=== PATIENT | female | born 1935 | race Caucasian/White ===

== ENCOUNTER → 2019-03-11 | Outpatient (CLI) | payer MEDICARE, SELFPAY ==
--- NOTE | 2019-03-11 16:12 | CT_ITS ---
STUDY: LOW DOSE CT LUNG CANCER SCREENING REASON FOR EXAM: Female, 83 years old. Long history of smoking. Cough RADIATION DOSAGE (If Supplied By Facility): CTDIvol = ( 2.01 ) mGy, DLP = ( 73.99 ) mGycm TECHNIQUE: No contrast was administered. Low dose technique was utilized (average mAS-38 and kVp 120). 1.25 mm axial source images with a slice interval of 1.25-mm were reconstructed in lung windows. 2.5 mm axial source images with a slice interval of 2.5-mm were reconstructed in lung windows. 5.0 mm axial source images with a slice interval of 5.0-mm were reconstructed in soft tissue windows. Nodule measured using lung windows on PACS and/or independent workstation with automated measurement of minimum and maximum diameter. Nodule measurement reported as average diameter rounded to the nearest whole number. Growth is defined as an increase ins size of greater than 1.5 mm. COMPARISON: None. NODULES: There is complete atelectasis of the right middle lobe. There is hyperinflation in both lungs suggesting COPD. 2 calcified nodules in the right upper lobe measuring respectively 4 mm and subcentimeter are consistent with granulomas. There is no demonstrated pleural abnormality. Normal heart and pericardium. Normal mediastinum. Normal hilar regions. Normal unenhanced pulmonary arteries. Normal aorta arch and descending thoracic aorta. Normal osseous structures. There is no demonstrated abnormality of the visualized upper abdomen. CT/Low Dose CT Lung Screening IMPRESSION: Lung-RADS category 4. Suspicious finding complete atelectasis of the right middle lobe. Recommendation: Endoscopic examination to exclude endobronchial neoplasm. IMPORTANT NOTES FOR USE: ACR Lung-RADS Version 1.0 Assessment Categories Release Date: January 19, 2014 Category: Coded 0-4 bases on nodule(s) with highest degree of suspicion. Negative screen is defined as categories 1 and 2; a positive screen is defined as categories 3 and 4. Category 3 and 4A nodules that are unchanged on interval CT should be coded as category 2, and individuals returned to screening in 12 months. Category 4X: Category 3 or 4 nodules with additional imaging findings that increase the suspicion of lung cancer, such as spiculation, GGN that doubles in size in 1 year, enlarged lymph notes, etc. Category Modifiers: S (significant finding unrelated to lung cancer) and C (prior history of treated lung cancer) may be added to the 0-4 Lung-RADS Electronically Signed: Ja Cross, at 5:44 EDT Tel , Service support ,
== END | disposition home or self-care (01) ==
LOC: CT 16:10
PROVIDERS: Family Provider Internal Medicine; PCP Internal Medicine; Referring Provider Nurse Practitioner; Visit Provider Nurse Practitioner
DX: R05 Cough (principal); F17.210 Nicotine dependence, cigarettes, uncomplicated; Z12.2 Encounter for screening for malignant neoplasm of respiratory organs
CPT/HCPCS: G0297

== ENCOUNTER → 2019-06-16 16:52 | Outpatient (CLI) | payer MEDICARE, SELFPAY ==
[2019-06-16 17:35] LABS: Absolute Lymphocyte Count 1.69 X10^3/uL (0.83-4.51); Absolute Neutrophil Count 5.2 X10^3/uL (2.0-7.7); Basophil# 0.07 X10^3/uL; Basophil% 0.9 % (0-1); Eosinophil# 0.19 X10^3/uL; Eosinophils% 2.4 % (0-5); Hematocrit 45.7 % (37-47); Hemoglobin 15.1 g/dL (12.0-15.0); Lymphocyte # 1.69 X10^3/ul (4.0); Lymphocyte % 21.7 % (19-41); Mean Corpuscular Hgb 29.3 pg (27.0-32.0); Mean Corpuscular Volume 88.7 fL (81-99); Mean Platelet Vol. 10.6 fl (6.2-12.0); Monocyte# 0.64 X10^3/uL; Monocyte% 8.2 % (0-10); NRBC Flagged by Analyzer 0 % (0-5); Neutrophil # 5.16 X10^3/uL (2.7-7.7); Neutrophil % 66.3 % (47-70); Platelet Count 240 K/mm3 (150-450); RBC Distribution Width CV 13.1 % (11.6-14.6); RBC Distribution Width SD 42.5 fl (35.1-43.9); Red Blood Count 5.15 M/mm3 (4.2-5.4); White Blood Count 7.8 K/mm3 (4.4-11.0)
[2019-06-16 18:16] LABS: ALB/GLOB Ratio 1.1 RATIO (0.9-2.4); AST(SGOT) 27 U/L (15-37); Alanine Aminotransfer ALT/SGPT 28 U/L (13-56); Albumin, Serum 4.2 g/dL (3.2-5.0); Alkaline Phosphatase 110 U/L (45-117); Anion Gap 6 (5-15); BUN 11 mg/dL (7-18); BUN/Creat Ratio 12.6 RATIO (10-20); Calcium,Total 9.1 mg/dL (8.5-10.1); Chloride 101 mmol/L (98-107); Creatinine, Serum 0.87 mg/dL (0.55-1.02); EST Glomerular Filtration Rate 66 mL/min (>60); Est Glom Filt Rate - Afr Amer 80 mL/min (>60); Globulin 3.8 g/dL (2.2-4.2); Glucose 101 mg/dL (74-106); Sodium Level 135 mmol/L (136-145)
== END ==
PROVIDERS: Family Provider Internal Medicine; PCP Internal Medicine; Referring Provider Nurse Practitioner; Visit Provider Nurse Practitioner
DX: J44.9 Chronic obstructive pulmonary disease, unspecified (principal); E55.9 Vitamin D deficiency, unspecified
CPT/HCPCS: 36415; 80053; 82306; 85025

== ENCOUNTER → 2019-09-02 15:14 | Outpatient (CLI) | payer MEDICARE, SELFPAY ==
--- NOTE | 2019-09-02 15:16 | BI_ITS ---
MAMMOGRAPHY - BILATERAL SCREENING REASON FOR EXAM: Female, 83 years old. Routine annual screening examination. PERTINENT HISTORY: Non-contributory. TECHNIQUE: Digital bilateral breast gianna (3D mammographic acquisition) in the CC and MLO projections. 2-D mediolateral oblique (MLO) and craniocaudad (CC) views of both breasts were obtained. CAD: Full Field Digital Mammography with Computer Added Detection was performed. COMPARISON: Comparison is made with prior study dated November 25, 2010. FINDINGS: Breast Composition: The breasts are heterogeneously dense, which may obscure small masses. There are no dominant masses or suspicious calcifications. Stable bilateral calcifications. Stable benign-appearing bilateral axillary lymph nodes. No other significant abnormalities are identified. There has been no significant change since the prior study. BI/SCREEN MAMM (CAD) W/GIANNA BILAT IMPRESSION: Stable bilateral screening mammogram. Yearly follow-up mammogram recommended. (A) ASSESSMENT CATEGORY: BIRADS Category 2: Benign. A letter regarding these results will be sent to the patient by the facility within 30 days. Approximately 10% of breast cancers are not detected by mammography. A normal mammogram should not delay biopsy of a clinically suspicious abnormality. [id number] Electronically Signed: Carlos Pelletier, at 15:59 EST , Service support ,
--- NOTE | 2019-09-02 15:51 | BD_ITS ---
STUDY: DUAL ENERGY X-RAY ABSORPTIOMETRY / DXA REASON FOR EXAM: Female, 83 years old. The patient is postmenopausal. Loss of height. TECHNIQUE: Bone Mineral Density (BMD) measurements of lumbar spine and bilateral hips were obtained. COMPARISON: None. FINDINGS: Lumbar Spine (L1-L4): g/cm2 (0.799) / T-score (-3.2) / Z-score (-1.3) Findings are suggestive of osteoporosis with a high fracture risk. Left Femur Total: g/cm2 (0.743) / T-score (-2.1) / Z-score (0.1) Left Femoral Neck: g/cm2 (0.04) / T-score (-1.7) / Z-score (0.6) Right Femur Total: g/cm2 (0.721) / T-score (-2.3) / Z-score (-0.1) Right Femoral Neck: g/cm2 (0.818) / T-score (-1.6) / Z-score (0.7) BD/Dexa Bone Density Study IMPRESSION: The patient is considered osteoporotic as outlined below according to World Turner Organization (WHO) criteria with a high fracture risk. Reference Information: The T-score is the number of standard deviations above or below the standard which is normal for young adults at their peak bone mineral density. The World Health Organization (WHO) interprets the T-scores as follows: Above -1 Normal bone density Between -1 and -2.5 Osteopenia Equal to / or below -2.5 Osteoporosis As a practical clinical guideline, osteopenia may be graded as follows: Mild -1 through -1.5 Moderate -1.6 through -2.0 Severe -2.1 through -2.4 The Z-score is the number of standard deviations above or below age-matched controls. A Z-score of less than -1.5 would be considered abnormal. References: 1. NIH Osteoporosis and Related Bone Diseases http://www.osteo.org 2. International Society for Clinical Densitometry http://www.iscd.org 3. National Osteoporosis Foundation http://www.nof.org Electronically Signed: Carlos Pelletier, at 14:31 EST , Service support ,
== END ==
PROVIDERS: Family Provider Nurse Practitioner; PCP Nurse Practitioner; Referring Provider Nurse Practitioner; Visit Provider Nurse Practitioner
DX: Z12.31 Encounter for screening mammogram for malignant neoplasm of breast (principal); Z78.0 Asymptomatic menopausal state; M81.0 Age-related osteoporosis without current pathological fracture
CPT/HCPCS: 77063; 77067; 77080

== ENCOUNTER → 2019-11-17 16:37 | Outpatient (CLI) | payer MEDICARE, SELFPAY ==
--- NOTE | 2019-11-17 16:40 | CT_ITS ---
STUDY: LOW DOSE CT LUNG CANCER SCREENING REASON FOR EXAM: Female, 83 years old. 40 pack smoking history. Right middle lobe nodule seen on prior CT of 2019. RADIATION DOSAGE (If Supplied By Facility): CTDIvol = ( 3.02 ) mGy, DLP = ( 106.84 ) mGycm TECHNIQUE: No contrast was administered. Low dose technique was utilized (average mAS-38 and kVp 120). 1.25 mm axial source images with a slice interval of 1.25-mm were reconstructed in lung windows. 2.5 mm axial source images with a slice interval of 2.5-mm were reconstructed in lung windows. 5.0 mm axial source images with a slice interval of 5.0-mm were reconstructed in soft tissue windows. Nodule measured using lung windows on PACS and/or independent workstation with automated measurement of minimum and maximum diameter. Nodule measurement reported as average diameter rounded to the nearest whole number. Growth is defined as an increase ins size of greater than 1.5 mm. COMPARISON: CT of the chest, March 11, 2019. NODULES: Nodule #: 1 Density: Solid Lung location: Left upper lobe: 1.6 cm from pleura Location in series: Series Number: 2 Image: 85 Size - D1 x D2 mm: 2 x 2 mm: 2 mm average diameter Margin: Smooth Shape: Round Calcification: Yes Fat: No Temporal comparison: Stable Nodule #: 2 Density: Solid Lung location: Right lower lobe: 1.7 cm from pleura Location in series: Series Number: 2 Image: 102 Size - D1 x D2 mm: 3 x 3 mm: 3 mm average diameter Margin: Smooth Shape: Rounded Calcification: Yes Fat: No Temporal comparison: Stable Nodule #: 3 Density: Solid Lung location: Right upper lobe: Pleural-based Location in series: Series Number: 2 Image: 103 Size - D1 x D2 mm: 6 x 6 mm: 6 mm average diameter Margin: Smooth Shape: Rounded Calcification: Yes Fat: No Temporal comparison: Stable Nodule #: 4 Density: Solid Lung location: Right upper lobe: 3.0 cm from pleura Location in series: Series Number: 2 Image: 114 Size - D1 x D2 mm: 3 x 2 mm: 3 mm average diameter Margin: Smooth Shape: Oval Calcification: Yes Fat: No Temporal comparison: Stable Total lung nodules (excluding granulomas): 0 Emphysema: Yes Endobronchial lesion: No. There is resolution of the right middle lobe collapse seen on the previous study. Aorta: Stable atherosclerotic changes. Coronary arteries: Stable atherosclerotic changes. Heart: Normal in size Pulmonary artery: Normal in size Mediastinal nodes: Stable mediastinal lymphadenopathy. Calcified lymph nodes are seen in the right hilum. Other chest and abdominal findings: There are degenerative changes of the thoracic spine. Calcified granulomata are seen in the spleen. Question gallstone. CT/Low Dose CT Lung Screening IMPRESSION: Resolution of the right middle lobe atelectasis seen on the previous study. There is no other major interval change. Lung-RADS category 1 - Continue annual screening with LDCT in 12 months. IMPORTANT NOTES FOR USE: ACR Lung-RADS Version 1.0 Assessment Categories Release Date: January 19, 2014 Category: Coded 0-4 bases on nodule(s) with highest degree of suspicion. Negative screen is defined as categories 1 and 2; a positive screen is defined as categories 3 and 4. Category 3 and 4A nodules that are unchanged on interval CT should be coded as category 2, and individuals returned to screening in 12 months. Category 4X: Category 3 or 4 nodules with additional imaging findings that increase the suspicion of lung cancer, such as spiculation, GGN that doubles in size in 1 year, enlarged lymph notes, etc. Category Modifiers: S (significant finding unrelated to lung cancer) and C (prior history of treated lung cancer) may be added to the 0-4 Lung-RADS Electronically Signed: Art Yap DO at 17:26 EST Tel [phone], Service support ,
== END ==
PROVIDERS: PCP Nurse Practitioner; Referring Provider Nurse Practitioner; Visit Provider Nurse Practitioner
DX: R93.89 Abnormal findings on diagnostic imaging of other specified body structures (principal); Z87.891 Personal history of nicotine dependence
CPT/HCPCS: G0297

== ENCOUNTER 2020-08-13 20:57 | Observation (INO) | payer MEDICARE, SELFPAY ==
[2020-08-13 20:58] VITALS: BP 160/76; PULSE 77; RESP 13; TEMP 36.9; O2SAT 97; BMI 25.2
[2020-08-13 21:05] VITALS: BP 160/76; PULSE 76; RESP 17; O2SAT 96
--- NOTE | 2020-08-13 21:20 | EKG12_ITS ---
Test Reason : SYNCOPE Blood Pressure : / mmHG Vent. Rate : 079 BPM Atrial Rate : 079 BPM P-R Int : 202 ms QRS Dur : 078 ms QT Int : 398 ms P-R-T Axes : 066 032 057 degrees QTc Int : 456 ms Normal sinus rhythm Normal ECG Confirmed by CARRINGTON ASHBY, OLGA ([id number]), health editor JOSR KIRKLAND ([id number]) on 08/16/2020 9:51:14 AM Referred By: BB Confirmed By:OLGA SHULTZ MD
--- NOTE | 2020-08-13 21:20 | ED.VIS.GEN ---
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 Her daughter apparently was with her and said that she was clammy and pale and blacked out. This is according to the patient and what the daughter told her. She denies any other prodromal symptoms. She did not feel nauseated prior to blacking out, dyspnea, palpitations, chest pain, headache. Right now she feels a little fatigued but otherwise feels a lot better. EMS blood sugar was around 180. Vital signs were stable. No bradycardia. Patient has chronic dyspnea with exertion associated with her COPD that is no different lately, she has been feeling well recently without any illness. She does not use home oxygen for any reason. She has had no recent hospitalization, falls, surgeries, travel. - Past Medical History (1) Diabetes Status: Chronic (2) COPD (chronic obstructive pulmonary disease) Status: Chronic Past Medical History - Allergies and Home Meds Allergies/Adverse Reactions: Allergies No Known Allergies Allergy (Verified 08/13/20 20:57) Primary Care Physician: Yuko Cleveland DIPLOMA MEDICAL ASSISTANT, DIPLOMA MEDICAL ASSISTANT-C [Primary Care Provider] - Lives: With Family Smoking Status: Former smoker Review of Systems General: Reports: Malaise. Denies: Chills, Fever, Sweats Eyes: Denies: Visual changes - bilaterally, Diplopia ENT: Denies: Rhinorrhea, Sore throat Cardiovascular: Denies: Chest pain, Palpitations Respiratory: Reports: Cough - Chronic unchanged, Dyspnea on exertion. Denies: Dyspnea, Sputum Gastrointestinal: Reports: Nausea - Resolved, Vomiting. Denies: Abdominal pain, Diarrhea, Melena, Hematochezia Genitourinary: Denies: Dysuria, Hematuria, Frequency Musculoskeletal: Denies: Back pain, Extremity Pain Skin: Denies: Rash, Wounds Neurological: Reports: - - Syncope. Denies: Headache, Weakness, Numbness Physical Exam Vital Signs/Narrative: Vital Signs Temp Pulse Resp BP Pulse Ox 11/20/20 21:05 76 17 160/76 H 96 08/13/20 20:58 98.4 F 77 13 160/76 H 97 Inital Vital Signs reviewed: Yes General: Well nourished, Well developed, No Acute Distress Head: Normocephalic, Atraumatic Eyes: Perrl, EOMI ENT: Moist mucous membranes, No rhinorrhea Neck: Supple, Nontender Cardiovascular: Regular rate, Regular rhythm, No murmurs Respiratory: No distress, CTA bilaterally, Chest nontender Abdomen: Soft, Nontender, Nondistended, Normal bowel sounds Back: Nontender, Normal Inspection Extremities: Nontender, Edema - Mild both feet and ankles only, symmetric. Negative for: Calf Tenderness Skin: Normal color, No rash Neurological: Alert, Oriented x3, Cranial nerves II-XII grossly intact, Normal Strength, Normal Sensation, - - No aphasia or dysarthria. [id number], [id number] bilaterally negative. Psychological: Normal affect, Normal Mood Diagnostic/Tx/Re-eval Chest X-Ray - ED: 1 View, Read by ED Physician, No Acute Disease - Rotated and relatively limited, Chronic Changes, No Infiltrates Laboratory Results 08/13/20 08/13/20 08/13/20 21:05 21:05 22:12 WBC 11.5 H RBC 5.00 Hgb 15.0 Hct 45.6 MCV 91.2 MCH 30.0 MCHC 32.9 RDW Std Deviation 45.1 H RDW Coeff of Collins 13.6 Plt Count 212 MPV 10.7 Immature Gran % (Auto) 0.400 Neut % (Auto) 85.3 H Lymph % (Auto) 7.1 L [place] % (Auto) 5.3 Eos % (Auto) 1.5 Baso % (Auto) 0.4 Absolute Neuts (auto) 9.8 H Absolute Lymphs (auto) 0.81 L Nucleated RBC % 0 Sodium 138 Potassium 3.9 Chloride 106 Carbon Dioxide 28.0 Anion Gap 4 L BUN 13 Creatinine 1.01 Estim Creat Clear Calc 41.83 Est GFR (MDRD) Af Amer 67 Est GFR (MDRD) Non-Af 55 L BUN/Creatinine Ratio 12.9 Glucose 179 H Calcium 8.7 Troponin I < 0.015 Urine Color Yellow Urine Clarity Sl. Cloudy Urine pH 8.0 Ur Specific [place] 1.015 Urine Protein 15 H Urine Glucose (UA) 50 H Urine Ketones Negative Urine Occult Blood Negative Urine Nitrite Negative Urine Bilirubin Negative Urine Urobilinogen Normal Ur Leukocyte Esterase 25 H Urine RBC 0 SEEN Urine WBC 0-5 SEEN Ur Squamous Epith Cells 0-5 SEEN Urine Bacteria RARE Urine Mucus 0 SEEN - Rhythm Strip Rhythm Strip: Sinus Rhythm Rate: 79 Ectopy: PAC(s) - EKG Initial EKG Interpretation: Sinus Rhythm, No Acute Injury Pattern - normal EKG Follow-up EKG Interpretation: Sinus Rhythm, No Acute Injury Pattern, - - PACs - Medical Decision Making Work-up is unremarkable. Patient had no dyspnea to suggest a PE as etiology of her syncope. Since there is no obvious cause, and she is elderly, plan is admission to observation telemetry. Of note, the patient has no stroke symptoms or findings, nor history to suggest a stroke causing this or a fall/injury to the head, so I do not think she needs a CT head at this time. ED Disposition - Plan for ED Patient: Disposition: Acute Care Hospital [facility] Diagnosis: Syncope Referrals: Yuko Cleveland DIPLOMA MEDICAL ASSISTANT, DIPLOMA MEDICAL ASSISTANT-C [Primary Care Provider] -
[2020-08-13 21:54] LABS: Absolute Lymphocyte Count 0.81 X10^3/uL (0.83-4.51); Absolute Neutrophil Count 9.8 X10^3/uL (2.0-7.7); Basophil# 0.05 X10^3/uL; Basophil% 0.4 % (0-1); Eosinophil# 0.17 X10^3/uL; Eosinophils% 1.5 % (0-5); Hematocrit 45.6 % (37-47); Lymphocyte # 0.81 X10^3/ul (4.0); Lymphocyte % 7.1 % (19-41); Mean Corp Hgb Conc 32.9 g/dL (32-36); Mean Corpuscular Volume 91.2 fL (81-99); Mean Platelet Vol. 10.7 fl (6.2-12.0); Monocyte# 0.61 X10^3/uL; Monocyte% 5.3 % (0-10); NRBC Flagged by Analyzer 0 % (0-5); Neutrophil # 9.79 X10^3/uL (2.7-7.7); Neutrophil % 85.3 % (47-70); Platelet Count 212 K/mm3 (150-450); RBC Distribution Width CV 13.6 % (11.6-14.6); RBC Distribution Width SD 45.1 fl (35.1-43.9); White Blood Count 11.5 K/mm3 (4.4-11.0)
[2020-08-13 21:58] LABS: Anion Gap 4 (5-15); BUN 13 mg/dL (7-18); BUN/Creat Ratio 12.9 RATIO (10-20); Calcium,Total 8.7 mg/dL (8.5-10.1); Chloride 106 mmol/L (98-107); Creatinine, Serum 1.01 mg/dL (0.55-1.02); EST Glomerular Filtration Rate 55 mL/min (>60); Est Glom Filt Rate - Afr Amer 67 mL/min (>60); Estimated Creatinine Clearance 41.83 ml/min; Glucose 179 mg/dL (74-106); Potassium 3.9 mmol/L (3.5-5.1); Sodium Level 138 mmol/L (136-145)
[2020-08-13 22:21] LABS: Mucous, Urine 0 SEEN /hpf (<or=2+); Red Blood Cells-Urine 0 SEEN /hpf (0-5)
[2020-08-13 22:34] LABS: Color, Urine Yellow (Yellow); Glucose, Dipstick 50 mg/dl (Normal); Ketone-Dipstick Negative (Negative); Leukocyte Esterase-Dipstick 25 /ul (Negative); Nitrite-Dipstick Negative (Negative); Occult Blood-Urine Negative /ul (Negative); Protein-Dipstick 15 mg/dl (Negative); Specific Gravity, Urine 1.015 (1.002-1.030); Urine Bilirubin Dipstick Negative (Negative); Urine Clarity Sl. Cloudy (Clear); Urine Urobilinogen Normal (Normal)
[2020-08-13 22:48] LABS: Bacteria RARE /hpf (None Seen); Squamous Epithelial Cells - UA 0-5 SEEN /hpf (5-10); White Blood Cells 0-5 SEEN /hpf (0-5)
[2020-08-13 23:00] VITALS: BP 141/84; PULSE 88; RESP 17; O2SAT 98
--- NOTE | 2020-08-13 23:48 | RAD_ITS ---
STUDY: X-RAY CHEST REASON FOR EXAM: Female, 84 years old. syncope and cough TECHNIQUE: Single AP portable view of the chest. COMPARISON: None. FINDINGS: There is a calcified granuloma in the right lung upper lobe measures 7 mm. There is small right pleural effusion. Normal size heart. Normal mediastinum and jovi. Normal visualized pulmonary arteries. Normal visualized aortic arch and descending thoracic aorta. Normal visualized thoracic spine. There is degenerative osteoarthritis of the bilateral shoulders. There is no demonstrated abnormality of the visualized soft tissue structures of the upper abdomen. RAD/Chest 1 View (Portable) IMPRESSION: Small right pleural effusion. Electronically Signed: Ja Cross, at 1:03 EST Tel , Service support ,
[2020-08-14] VITALS (16 sets, daily range): BP systolic 110–152; BP diastolic 52–73; PULSE 67–100; RESP 15–20; TEMP 36.8–37.7; O2SAT 95–99; BMI 24.0
--- NOTE | 2020-08-14 00:18 | EKG12_ITS ---
Test Reason : REPEAT EKG Blood Pressure : / mmHG Vent. Rate : 088 BPM Atrial Rate : 088 BPM P-R Int : 162 ms QRS Dur : 068 ms QT Int : 382 ms P-R-T Axes : 033 029 056 degrees QTc Int : 462 ms Sinus rhythm with Premature supraventricular complexes Otherwise normal ECG Confirmed by CARRINGTON ASHBY, OLGA ([id number]), dictionary editor JOSR KIRKLAND ([id number]) on 08/16/2020 9:51:00 AM Referred By: BB Confirmed By:OLGA SHULTZ MD
--- NOTE | 2020-08-14 01:01 | PCM.HP.STD ---
Problem List (1) Syncope Status: Acute Qualifiers: Syncope type: unspecified Qualified Code(s): R55 - Syncope and collapse (2) Former tobacco use Status: Chronic (3) COPD (chronic obstructive pulmonary disease) Status: Chronic Qualifiers: COPD type: unspecified COPD Qualified Code(s): J44.9 - Chronic obstructive pulmonary disease, unspecified (4) Diabetes Status: Chronic Qualifiers: Diabetes mellitus type: type 2 Diabetes mellitus intermediate accountant insulin use: without intermediate accountant use Diabetes mellitus complication status: with other specified complication Qualified Code(s): E11.69 - Type 2 diabetes mellitus with other specified complication History of Present Illness Date of Admission: 08/14/20 Chief Complaint: Syncopal event The patient is an 84 y/o F w/ PMHx: Chronic COPD with chronic exertional dyspnea, Diabetes mellitus type II, Vitamin D deficiency, Former Tobacco use who presents to the [facility] ED on 08/14/20 with history of syncopal event prior to ED presentation with loss of consciousness lasting several minutes and upon awakening had episode of nausea and emesis following her evening meal while seated on her couch noting to felt faint prior and reportedly clammy and pale per her daughter who witnessed the event. Patient upon ED presentation noted feeling fatigued otherwise no acute complaints. She denies any recent fever, chills, nausea, emesis side from recent event, diarrhea, abdominal cramping, body aches, headaches, cough or dyspnea. He denies any recent ill contacts. Work-up in the ED included T 98.4, heart rate 77, BP 160/76, respiratory rate 13, 97% on room air, CBC with WC 11.5, hemoglobin 15, platelet 212 with left shift and concurrent lymphopenia, BMP with glucose 179 though otherwise not marked appearing, troponin less than 0.015, urinalysis not marked appearing, chest x-ray with no acute cardiopulmonary findings with chronic changes, EKG with sinus rhythm with PACs. The ED patient ministered normal saline. Past Medical History Past Medical History (Chronic Problems): Chronic Problems Diabetes (Chronic) COPD (chronic obstructive pulmonary disease) (Chronic) Former tobacco use (Chronic) Allergies No Known Allergies Allergy (Verified 08/13/20 20:57) Home Medications: Ambulatory Orders Medication Instructions Recorded Cholecalciferol (VIT D3) [Vitamin 1,000 unit PO DAILY 08/13/20 D] Surgical History: - - Cataract surgery bilaterally. Psychiatric History: No pertinent psych hx TRAUMA PROGRAM MANAGER History: No pertinent TRAUMA PROGRAM MANAGER history Lives: With Family - Patient lives with her daughter. Smoking Status: Former smoker - Patient quit cigarette tobacco usage approximately 5 to 7 years prior to current presentation with prior to this approximately 1 pack/week starting when she was a teenager. Tobacco Use: Non-smoker Alcohol: None Drugs: None - *Family History Maternal History Items: - - Patient denies any market maternal or paternal family history including heart disease, diabetes, cancer. Paternal History Items: - - Patient denies any market maternal or paternal family history including heart disease, diabetes, cancer. Sibling History Items: - - Patient notes a brother with history of stroke and a sister with a history of uterine cancer. Review of Systems Constitutional: Reports: Malaise, Weakness, Fatigue. Denies: Chills, Fever, Weight Change HEENT: Reports: -. Denies: Head Aches, Sinus Congestion, Sinus Drainage Cardiovascular: Reports: Light Headedness, Syncope. Denies: Chest Pain, Chest Pressure, Chest Tightness, Palpitations Respiratory: Denies: Cough, Shortness of breath at rest, Sputum production Gastrointestinal: Denies: Abdominal Pain, Nausea, Vomiting Genitourinary: Denies: Dysuria Musculoskeletal: Reports: Joint Pain. Denies: Joint Tenderness Skin: Denies: Rash, Wounds Neurological: Denies: Numbness, Tingling, Focal weakness Psychiatric: Denies: Anxiety, Depression, Homicidal Ideations, Suicidal Ideations Hematologic/ Lymphatic: Reports: Easy Bruising, Easy Bleeding VTE Information - Inpt Only VTE Present on Admission: No VTE Mechan Device Prophylaxis: SCD's VTE Pharm Prophylaxis ordered?: Yes Patient Problems: Active and Suspected Problems Syncope (Acute) Subjective: Patient seated upright in the ED bed, no acute distress, notes feeling back to baseline. Objective: Physical Examination: General: awake, alert, oriented x 3 and cooperative, seated upright in the ED bed in no apparent distress, fatigued appearance. Skin: normal color, turgor, no icterus, cyanosis. HEENT: AT/NC, EOMI, PERRLA, MMM, no carotid bruits or JVD noted. Lungs: CTA bilaterally, moderate effort, moderate decrease BL bases, no rales, ronchi or wheezing. Heart: Regular rate and rhythm; no gallop, rub audible. Abdomen: soft, NTTP, ND, normal BS, no HSM. Extremities: no cyanosis, clubbing, or edema. Neurological: patient awake, alert, oriented as noted; cognitive function appears baseline intact; pupils equally reactive to light and accomodation; cranial nerves II-XII grossly normal, moving all 4 extremities, no focal deficits, strength mildly globally decreased. Psychiatric: affect appears fatigued otherwise normal, no acute evidence of depressive or anxiety feelings. - Physical Exam Vitals/I&O's: Vital Signs Temp Pulse Resp BP Pulse Ox 98.4 F 88 17 141/84 H 98 08/13/20 20:58 08/13/20 23:00 08/13/20 23:00 08/13/20 23:00 08/13/20 23:00 Oxygen Delivery Method Room Air Weight: 165 lb 12.602 oz Body Mass Index (BMI) 25.2 Intake and Output for Last 24 Hours 08/12/20 08/13/20 08/14/20 23:59 23:59 23:59 Intake Total 500 / 500 Balance 500 / 500 Laboratory Results 08/13/20 21:05: WBC 11.5 H, RBC 5.00, Hgb 15.0, Hct 45.6, MCV 91.2, MCH 30.0, MCHC 32.9, RDW Std Deviation 45.1 H, RDW Coeff of Collins 13.6, Plt Count 212, MPV 10.7, Immature Gran % (Auto) 0.400, Neut % (Auto) 85.3 H, Lymph % (Auto) 7.1 L, [place] % (Auto) 5.3, Eos % (Auto) 1.5, Baso % (Auto) 0.4, Absolute Neuts (auto) 9.8 H, Absolute Lymphs (auto) 0.81 L, Nucleated RBC % 0 08/13/20 21:05: Sodium 138, Potassium 3.9, Chloride 106, Carbon Dioxide 28.0, Anion Gap 4 L, BUN 13, Creatinine 1.01, Estim Creat Clear Calc 41.83, Est GFR (MDRD) Af Amer 67, Est GFR (MDRD) Non-Af 55 L, BUN/Creatinine Ratio 12.9, Glucose 179 H, Calcium 8.7, Troponin I < 0.015 11/20/20 22:12: Urine Color Yellow, Urine Clarity Sl. Cloudy, Urine pH 8.0, Ur Specific [place] 1.015, Urine Protein 15 H, Urine Glucose (UA) 50 H, Urine Ketones Negative, Urine Occult Blood Negative, Urine Nitrite Negative, Urine Bilirubin Negative, Urine Urobilinogen Normal, Ur Leukocyte Esterase 25 H, Urine RBC 0 SEEN, Urine WBC 0-5 SEEN, Ur Squamous Epith Cells 0-5 SEEN, Urine Bacteria RARE, Urine Mucus 0 SEEN Assessment/Plan All Active Problems Syncope (Acute) The patient is an 84 y/o F w/ PMHx: Chronic COPD with chronic exertional dyspnea, Diabetes mellitus type II, Vitamin D deficiency, Former Tobacco use who presents to the [facility] ED on 08/14/20 with history of syncopal event prior to ED presentation with loss of consciousness lasting several minutes and upon awakening had episode of nausea and emesis following her evening meal while seated on her couch noting to felt faint prior and reportedly clammy and pale. 1. Syncopal Event: Unclear etiololgy, EKG in ED w/ sinus rhythm without evidence of acute ischemia, CXR w/ no acute cardiopulmonary findings, initial trop normal. Will admit to PCU, place on a monitored bed to assure no acute myocardial infarction with serial cardiac enzymes and EKGs. Will maintain on fall precautions, obtain admission orthostatic and AM orthostatic VS and increase hydration if appropriate. Will obtain ECHO. May consider carotid ultrasound if felt appropriate. PT/OT consultation to ascertain stability and discharge needs. 2. Leukocytosis and lymphopenia, mild: Patient with leukocytosis as well as mild lymphopenia, possibly stress response, will hydrate and plan repeat CBC with differential in a.m. 3. Diabetes mellitus type II: Previous on metformin, not on current list, HgbA1c pending, ADA diet, accu checks w/ ISS. 4. Chronic COPD with chronic exertional dyspnea: Will maintain on oxygen with wean as tolerated to room air, continue ATC duonebs, PRN albuterol, HOB, IS parameters. 5. Former tobacco use: Encourage continued tobacco cessation. 6. DVT prophylaxis: SCDs, Lovenox. 7. CODE status: Patient does not have healthcare power of senior attorney nor living will set up but currently lives with her daughter. Discussed CODE status at length including difference between FULL code, DNR-CCA and DNR-CC status. Following discussions about the differences in these status, requested Full Code status. Advanced Care Planning Face to Face Time: 16 minutes. OBSV E&M: 48892 Initial observation care L3 Procedures: 13793 Advncd Care Plan 30 Min
--- NOTE | 2020-08-14 02:44 | ECHOD_ITS ---
Reason For Study: Arrhythmia Procedure This was a 2D Doppler, Color Flow transthoracic echocardiogram. Exam performed portable in patient room. Left Ventricle Normal LV size. Mild concentric left ventricular hypertrophy. Left ventricular systolic function is normal. The estimated ejection fraction is 65 %. Stage 1 diastolic dysfunction. No regional wall motion abnormalities noted. Right Ventricle Normal RV size. Normal systolic function. Atria Normal left atrium. Normal right atrium. Mitral Valve There is moderate mitral annular calcification. Tricuspid Valve Normal tricuspid valve. Mild (1+) tricuspid valve insufficiency. Pulmonary artery systolic pressure is 30 mmHg. Aortic Valve Trisinus/trileaflet aortic valve. Mild focal aortic valve calcification. Pulmonic Valve Normal pulmonic valve. Great Vessels Normal aortic root. The pulmonary artery is normal size. Normal inferior vena cava. Pericardium/Pleural No pericardial effusion. MMode/2D Measurements & Calculations LVIDd: 3.7 cm IVSd: 1.2 cm Ao root diam: 3.8 cm LVIDs: 2.5 cm LVPWd: 1.2 cm LA dimension: 3.0 cm FS: 31.3 % LAV(MOD-bp): 22.2 ml LA A4 area: 12.0 cm2 RA A4 area: 12.3 cm2 LAV(MOD-bp) Indexed: 12.0 ml/m2 LAV(MOD-sp2): 22.0 ml LAV(MOD-sp4): 23.6 ml Time Measurements MV dec time: 0.31 sec Doppler Measurements & Calculations MV E max luis e: 73.9 cm/sec Lat Peak E' Luis E: 9.0 cm/sec Med Peak E' Luis E: 8.8 cm/sec MV A max luis e: 110.5 cm/sec E/E' lat: 8.2 E/E' med: 8.4 MV E/A: 0.67 MV V2 max: 128.1 cm/sec MV P1/2t max luis e: 79.9 cm/sec Ao V2 max: 175.3 cm/sec MV max P.6 mmHg MV P1/2t: 79.3 msec Ao max P.3 mmHg MV V2 mean: 68.7 cm/sec MV dec slope: 295.4 cm/sec2 MV mean P.2 mmHg MVA(P1/2t): 2.8 cm2 MV V2 VTI: 28.4 cm LV V1 max: 104.6 cm/sec PA V2 max: 86.7 cm/sec TR max luis e: 262.4 cm/sec LV V1 max P.4 mmHg TR max P.5 mmHg Interpretation Summary Normal LV size. Mild concentric left ventricular hypertrophy. Left ventricular systolic function is normal. The estimated ejection fraction is 65 %. Stage 1 diastolic dysfunction. Pulmonary artery systolic pressure is 30 mmHg. Ordering Physician: Lima Garibay Referring Physician: Yuko Cleveland Performed By: Bryson Beth RCS
[2020-08-14] MEDS: 0.9% Normal Saline 1,000 ML 100 ML IV ×3 (02:58→22:48)
--- NOTE | 2020-08-14 03:35 | NURSING ---
lab notitifed of new order for Cardiac troponin series
[2020-08-14 04:49] LABS: Magnesium 2.1 mg/dL (1.6-2.6)
[2020-08-14 07:07] LABS: Absolute Lymphocyte Count 0.83 X10^3/uL (0.83-4.51); Absolute Neutrophil Count 8.5 X10^3/uL (2.0-7.7); Basophil# 0.05 X10^3/uL; Basophil% 0.5 % (0-1); Eosinophil# 0.03 X10^3/uL; Eosinophils% 0.3 % (0-5); Hematocrit 44.3 % (37-47); Hemoglobin 14.4 g/dL (12.0-15.0); Lymphocyte # 0.83 X10^3/ul (4.0); Lymphocyte % 8.1 % (19-41); Mean Corp Hgb Conc 32.5 g/dL (32-36); Mean Corpuscular Hgb 29.6 pg (27.0-32.0); Mean Platelet Vol. 10.8 fl (6.2-12.0); Monocyte# 0.74 X10^3/uL; Monocyte% 7.2 % (0-10); NRBC Flagged by Analyzer 0 % (0-5); Neutrophil # 8.54 X10^3/uL (2.7-7.7); Neutrophil % 83.7 % (47-70); Platelet Count 209 K/mm3 (150-450); RBC Distribution Width CV 13.6 % (11.6-14.6); RBC Distribution Width SD 44.6 fl (35.1-43.9); Red Blood Count 4.87 M/mm3 (4.2-5.4); White Blood Count 10.2 K/mm3 (4.4-11.0)
[2020-08-14] MEDS: Insulin Lispro 100 UNIT/ML INSULN.PEN SC ×3 (07:11→20:45)
[2020-08-14 07:15] LABS: Bedside Glucose 151 mg/dL (70-110)
[2020-08-14 07:27] LABS: Hemoglobin A1c 6.2 % (3.8-5.6)
[2020-08-14] MEDS: Ipratropium/Albuterol Sulfate 3 ML AMPUL.NEB INHALATION ×2 (07:30→19:11)
[2020-08-14 07:43] LABS: ALB/GLOB Ratio 0.9 RATIO (0.9-2.4); AST(SGOT) 17 U/L (15-37); Alanine Aminotransfer ALT/SGPT 18 U/L (13-56); Albumin, Serum 3.4 g/dL (3.2-5.0); Alkaline Phosphatase 110 U/L (45-117); Anion Gap 6 (5-15); BUN 9 mg/dL (7-18); Calcium,Total 8.7 mg/dL (8.5-10.1); Chloride 106 mmol/L (98-107); EST Glomerular Filtration Rate 63 mL/min (>60); Est Glom Filt Rate - Afr Amer 76 mL/min (>60); Estimated Creatinine Clearance 46.94 ml/min; Globulin 3.6 g/dL (2.2-4.2); Glucose 157 mg/dL (74-106); Potassium 4.2 mmol/L (3.5-5.1); Sodium Level 138 mmol/L (136-145)
--- NOTE | 2020-08-14 09:22 | EKG12_ITS ---
Test Reason : Blood Pressure : / mmHG Vent. Rate : 088 BPM Atrial Rate : 088 BPM P-R Int : 182 ms QRS Dur : 076 ms QT Int : 356 ms P-R-T Axes : 048 016 044 degrees QTc Int : 430 ms Normal sinus rhythm Normal ECG When compared with ECG of 13-AUG-2020 23:58, MANUAL COMPARISON REQUIRED, DATA IS UNCONFIRMED Confirmed by CARRINGTON ASHBY, OLGA ([id number]), visual effects editor JOSR KIRKLAND ([id number]) on 08/17/2020 9:36:16 AM Referred By: CINTHAY Confirmed By:OLGA SHULTZ MD
[2020-08-14] MEDS: Enoxaparin 40 MG/0.4 ML Syringe SC (10:07)
--- NOTE | 2020-08-14 11:12 | MRI_ITS ---
STUDY: MRI BRAIN WITHOUT CONTRAST REASON FOR EXAM: Female, 84 years old. Concern for seizure, AMS, syncope, r/o stroke TECHNIQUE: Standardized multiplanar fat and water weighted pulse sequences were obtained. COMPARISON: None. FINDINGS: There is mild cerebral atrophy with widening of the extra-axial spaces and ventricular dilatation. There are multiple white matter hyperintensities, distributed throughout the deep white matter tracts of the cerebral hemispheres, consistent with moderate chronic white matter ischemic changes. There is no evidence for recent intracranial ischemia or other cause of cytotoxic edema on diffusion weighted imaging (DWI). Normal T2* images of the brain without demonstrated susceptibility artifact. There is no demonstrated hemosiderin stain. Normal bilateral basal ganglia. Normal thalami. There is no extra-axial fluid accumulation. Normal flow voids within the major intracranial circulation suggesting patency by spin echo criteria. Normal sella turcica, pituitary gland, infundibular stalk, optic chiasm and hypothalamus. Normal tectal plate and pineal gland. Normal midbrain, juan m and medulla. There is left cerebellar volume loss and encephalomalacia. Normal basal cisterns. 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 Normal bilateral internal auditory canals. There are bilateral ocular lens implants with otherwise normal intraorbital contents. Normal visualized paranasal sinuses. Normal calvarium and skull base. Normal visualized soft tissue structures. Normal visualized upper cervical spine. MRI/Brain without Contrast IMPRESSION: Involutional changes of the brain, as described above. Electronically Signed: Marc Negron MD at 14:01 EST , Service support ,
--- NOTE | 2020-08-14 11:23 | PN_ITS ---
Patient Problems: Active and Suspected Problems Syncope (Acute) Reason for Visit: Patient was admitted for near syncope, syncope? Objective: H&P reviewed. I called daughter Viviana phone #[phone] about further history regarding near syncope or syncope. Her daughter was present throughout the event and was witness. As per her, she did not had complete loss of consciousness as her eyes were open but she was unaware of the event with a staring look. This happened while she was sitting on the couch after her evening meal and had nausea and emesis. Her upper body, especially her hands were having involuntary movement, like shaking or curling movement according to her. She had fecal and urine i ncontinence but this is not uncommon for her. She has chronic urinary incontinence status post mesh repair in early 1999. She still gets urinary incontinence mainly urge incontinence once or twice a week. She also has chronic diarrhea and fecal incontinence is more common than bladder incontinence. Usually she is not able to make to bathroom. Usually she has 4-5 times loose bowel movement per day. She does not like to follow any doctor or PCP and her daughter took her to PCP, Yuko Cleveland NP and she was diagnosed COPD. As per the daughter she had similar twitching or shaking/seizure-like movement about many years ago in 1970s or 1980s. Denies chronic alcohol use or substance use, alcohol withdrawal seizure or diagnosed history of epilepsy, TIA/stroke or chronic heart disease. On playground monitor, sinus arrhythmia with PVCs. As per the daughter there was concern for possible irregular heart rhythm by PCP Physical exam General: Alert, Oriented x3, Cooperative HEENT: Atraumatic, PERRLA, EOMI, Normocephalic Oral: No Gingival or Mucosal Lesions/ Ulcerations Neck: Supple, No JVD, Negative Carotid Bruits Lungs: Air entry diminished in bilateral lung bases. No crepitation/rhonchi Cardiovascular: Sinus arrhythmia with PVCs. Normal S1, Normal S2, No murmurs Abdomen: Bowel Sounds Present, Soft, Non Tender, Non-Distended : No renal angle tenderness. No suprapubic tenderness. Extremities: No edema, Capillary Refill Less than 3 Seconds Skin: No rashes, No breakdown Musculoskeletal: No Tenderness to Palpation of Joints or Extremities Neurological: Cranial nerves II-XII grossly intact, Deep Tendon Reflexes 2+/4 and Symmetrical, Neuro grossly intact Psych/Mental Status: Normal Affect, Appropriate. Vitals/I&O's: Vital Signs Temp Pulse Resp BP Pulse Ox 99.8 F H 87 16 112/62 99 08/14/20 09:56 08/14/20 09:56 08/14/20 09:56 08/14/20 09:56 08/14/20 09:56 Oxygen Delivery Method Room Air Weight: 158 lb 1.143 oz Body Mass Index (BMI) 24.0 Orthostatic Vital Signs Start: 08/14/20 03:20 Freq: q24h Status: Active Protocol: Activity Type Activity Date Activity User E-Sign Co-Sign Detail Recorded Client Recorded Date Recorded By Document 08/14/20 03:20 [facility] [id number] 08/14/20 03:22 [facility] 08/14/20 03:20 Orthostatic Vitals Standing -Blood Pressure (90/60-120/80 mm Hg) 110/62 -Extremity Use Right Arm -Pulse Rate (60-100 beats/min) 83 Sitting -Blood Pressure (90/60-120/80 mm Hg) 119/62 -Extremity Use Right Arm -Pulse Rate (60-100 beats/min) 78 Lying -Blood Pressure (90/60-120/80 mm Hg) 115/59 L -Extremity Use Right Arm -Pulse Rate (60-100 beats/min) 67 Intake and Output for Last 24 Hours 08/12/20 08/13/20 08/14/20 23:59 23:59 23:59 Intake Total 500 / 500 Balance 500 / 500 Laboratory Results 08/13/20 21:05: WBC 11.5 H, RBC 5.00, Hgb 15.0, Hct 45.6, MCV 91.2, MCH 30.0, MCHC 32.9, RDW Std Deviation 45.1 H, RDW Coeff of [place] 13.6, Plt Count 212, MPV 10.7, Immature Gran % (Auto) 0.400, Neut % (Auto) 85.3 H, Lymph % (Auto) 7.1 L, [place] % (Auto) 5.3, Eos % (Auto) 1.5, Baso % (Auto) 0.4, Absolute Neuts (auto) 9.8 H, Absolute Lymphs (auto) 0.81 L, Nucleated RBC % 0 08/13/20 21:05: Sodium 138, Potassium 3.9, Chloride 106, Carbon Dioxide 28.0, Anion Gap 4 L, BUN 13, Creatinine 1.01, Estim Creat Clear Calc 41.83, Est GFR (MDRD) Af Amer 67, Est GFR (MDRD) Non-Af 55 L, BUN/Creatinine Ratio 12.9, Glucose 179 H, Calcium 8.7, Troponin I < 0.015 08/13/20 22:12: Urine Color Yellow, Urine Clarity Sl. Cloudy, Urine pH 8.0, Ur Specific [place] 1.015, Urine Protein 15 H, Urine Glucose (UA) 50 H, Urine Ketones Negative, Urine Occult Blood Negative, Urine Nitrite Negative, Urine Bilirubin Negative, Urine Urobilinogen Normal, Ur Leukocyte Esterase 25 H, Urine RBC 0 SEEN, Urine WBC 0-5 SEEN, Ur Squamous Epith Cells 0-5 SEEN, Urine Bacteria RARE, Urine Mucus 0 SEEN 08/14/20 03:50: Magnesium 2.1, Troponin I < 0.015 08/14/20 06:14: Troponin I < 0.015 08/14/20 06:25: Sodium 138, Potassium 4.2, Chloride 106, Carbon Dioxide 26.0, Anion Gap 6, BUN 9, Creatinine 0.90, Estim Creat Clear Calc 46.94, Est GFR (MDRD) Af Amer 76, Est GFR (MDRD) Non-Af 63, BUN/Creatinine Ratio 10.0, Glucose 157 H, Calcium 8.7, Total Bilirubin 0.80, AST 17, ALT 18, Alkaline Phosphatase 110, Total Protein 7.0, Albumin 3.4, Globulin 3.6, Albumin/Globulin Ratio 0.9 08/14/20 06:25: Hemoglobin A1c 6.2 H 08/14/20 06:25: WBC 10.2, RBC 4.87, Hgb 14.4, Hct 44.3, MCV 91.0, MCH 29.6, MCHC 32.5, RDW Std Deviation 44.6 H, RDW Coeff of [place] 13.6, Plt Count 209, MPV 10.8, Immature Gran % (Auto) 0.200, Neut % (Auto) 83.7 H, Lymph % (Auto) 8.1 L, [place] % (Auto) 7.2, Eos % (Auto) 0.3, Baso % (Auto) 0.5, Absolute Neuts (auto) 8.5 H, Absolute Lymphs (auto) 0.83, Nucleated RBC % 0 08/14/20 07:04: POC Glucose 151 H 08/14/20 09:34: Troponin I < 0.015 Current Medications Acetaminophen (Acetaminophen 325 Mg Tablet) 650 mg PO Q6H PRN PRN PRN Reason: Pain Score 1-10/Temp > 100.7 F Al Hydroxide/Mg Hydroxide (Mag Hydrox/Al Hydrox/Simeth 30 Ml Udc) 30 ml PO Q6H PRN PRN PRN Reason: Gastric Burning Albuterol Sulfate (Albuterol 2.5 Mg/3 Ml Vial.Neb.) 2.5 mg INHALATION Q2H PRN PRN PRN Reason: Dyspnea, wheezing Albuterol/Ipratropium (Ipratropium/Albuterol Sulfate 3 Ml Ampul.Neb) 3 ml INHALATION Q6HWA.RT [facility] Last Admin: 08/14/20 07:30 Dose: 3 ml Documented by: Enoxaparin Sodium (Enoxaparin 40 Mg/0.4 Ml Syringe) 40 mg SC DAILY [facility] Last Admin: 08/14/20 10:07 Dose: 40 mg Documented by: Guaifenesin (Guaifenesin 10 Ml Udc (200mg/10ml)) 20 ml PO Q4H PRN PRN PRN Reason: COUGH Hydralazine HCl (Hydralazine 20 Mg/Ml Vial) 10 mg IV Q4H PRN PRN PRN Reason: SBP > 160 Sodium Chloride () 1,000 mls @ 100 mls/hr IV .Q10H [facility] Last Admin: 08/14/20 02:58 Dose: 100 mls/hr Documented by: Insulin Human Lispro (Insulin Lispro 100 Unit/Ml Insuln.Pen) 0 unit SC [facility]; Protocol Last Admin: 08/14/20 07:11 Dose: 1 units Documented by: Magnesium Hydroxide (Magnesium Hydroxide 30 Ml Udc) 30 ml PO DAILY PRN PRN PRN Reason: Constipation Melatonin (Melatonin 3 Mg Tablet) 3 mg PO QHS PRN PRN PRN Reason: INSOMNIA Morphine Sulfate (Morphine 2 Mg/Ml Syringe) 2 mg IV Q3H PRN PRN PRN Reason: Pain Score 6-10 Nitroglycerin (Nitroglycerin (Inpatient Use) 0.4 Mg Tab.Subl) 0.4 mg SUBLINGUAL Q5M PRN PRN Reason: CARDIAC/CHEST PAIN Ondansetron HCl (Ondansetron 4 Mg/2 Ml Vial) 4 mg IV Q8H PRN PRN PRN Reason: NAUSEA/VOMITING Oxycodone HCl (Oxycodone 5 Mg Tablet) 5 mg PO Q4H PRN PRN PRN Reason: Pain Score 4-5 Prochlorperazine Edisylate (Prochlorperazine 10 Mg/2 Ml Vial) 5 mg IV Q4H PRN PRN PRN Reason: Breakthrough Nausea/Vomiting Psyllium Hydrophilic Mucilloid (Psyllium 1 Packet) 1 packet PO DAILY PRN PRN PRN Reason: Constipation Senna/Docusate Sodium (Senna/Docusate Sodium 1 Tablet) 2 tablet PO BID PRN PRN PRN Reason: Constipation Sodium Chloride (0.9% Saline Lock 10 Ml Syringe) 10 - 40 ml IV UD PRN PRN Reason: SALINE FLUSH Throat Lozenges (Benzocaine/Menthol 1 Lozenge) 1 lozenge MUCOUS MEM Q2H PRN PRN PRN Reason: SORE THROAT STROKE Vital Signs/Narrative: Vital Signs Temp Pulse Resp BP Pulse Ox 08/14/20 09:56 99.8 F H 87 16 112/62 99 08/14/20 07:30 85 16 96 Medical Necessity - Tobacco Use Smoking Status: Former smoker Tobacco Use: Non-smoker Assessment/Plan All Active Problems Syncope (Acute) 1. Near syncope/syncope most probably seems convulsive type although no definite evidence for seizure or epilepsy. Discussed with the neurologist Dr. Biggs. MRI brain was done and shows chronic involutional changes but no acute infarct or seizure-like focus. EEG ordered. She denies biting tongue and has chronic urinary and fecal incontinence. Patient thinks he might of passed out. 30-day event monitor. Orthostatic hypotension negative. Patient feels no dizziness night now. Interpretation Summary Normal LV size. Mild concentric left ventricular hypertrophy. Left ventricular systolic function is normal. The estimated ejection fraction is 65 %. Stage 1 diastolic dysfunction. Pulmonary artery systolic pressure is 30 mmHg. 2. Leukocytosis and lymphopenia, mild: Repeat CBC shows 10.2 thousand. 83.7% neutrophils, 8.1% lymphocytes. Clinical Impression(s) from Imaging Studies Chest X-Ray 08/13/20 23:48 IMPRESSION: Small right pleural effusion. Brain MRI 08/14/20 11:12 IMPRESSION: Involutional changes of the brain, as described above.
[2020-08-14 12:45] LABS: Bedside Glucose 173 mg/dL (70-110)
--- NOTE | 2020-08-14 13:00 | TELEMED_ITS ---
[facility] has confirmed receipt of a request for visit. This document confirms receipt of the order initiating the consult. To find the results of the consultation, please view the patient's reports for the scanned Telemed Consult.
[2020-08-14 17:10] LABS: Bedside Glucose 126 mg/dL (70-110)
[2020-08-14 20:56] LABS: Bedside Glucose 173 mg/dL (70-110)
[2020-08-15 02:19] VITALS: BP 121/62; PULSE 66; RESP 20; TEMP 37; O2SAT 94
[2020-08-15 03:00] VITALS: PULSE 65
[2020-08-15 06:28] VITALS: BP 108/48; BP 117/80; BP 118/61; PULSE 63; PULSE 77; PULSE 86
[2020-08-15 06:40] LABS: Bedside Glucose 129 mg/dL (70-110)
[2020-08-15 06:52] VITALS: PULSE 78; PULSE 88; RESP 20; O2SAT 96
[2020-08-15] MEDS: Ipratropium/Albuterol Sulfate 3 ML AMPUL.NEB INHALATION (06:52)
[2020-08-15 08:20] VITALS: BP 104/49; PULSE 70; RESP 18; TEMP 36.8; O2SAT 93
[2020-08-15] MEDS: Enoxaparin 40 MG/0.4 ML Syringe SC (08:30)
[2020-08-15] MEDS: 0.9% Normal Saline 1,000 ML 100 ML IV (08:30)
--- NOTE | 2020-08-15 09:25 | PCM.DC ---
- Discharge Diagnoses Current Active Problems: Current Active and Chronic Problems Diabetes (Chronic) COPD (chronic obstructive pulmonary disease) (Chronic) Syncope (Acute) Former tobacco use (Chronic) You will use the following diet at home:: Calorie/Carbohydrate Controlled (specify 1200, 1400, etc) - carb controlled Your food should be the consistency of: Regular Your liquids should be the consistency of: Regular/Thin Discharge Activity: May Not Drive Call your doctor if you observe: Fever of 101 or Higher, Coldness, Increased Pain, Numbness or Tingling, Change in Color, Inability to urinate, Inability to have a bowel movement, Using more than one pad per hour, Shortness of breath, Dizziness, Fainting spells, Swelling in the ankles, Chest pain, Prolonged hiccoughing, Increased palpitations (irregular heartbeat), Calf discomfort Additional Instructions: 30-day event monitor for suspicion of possible paroxysmal A. fib. Approved by Dr. Luis. Allergies/Adverse Reactions: Allergies No Known Allergies Allergy (Verified 08/13/20 20:57) Medications to take at Discharge Cholecalciferol (VIT D3) [Vitamin D3] 1,000 unit PO DAILY 08/13/20 Primary Care Physician: Yuko Cleveland MACHINE SPLITTER, MACHINE SPLITTER-C [Primary Care Provider] - Please follow up with your Primary Care Physician in: in 2 weeks Test Results: Test results from this visit will be discussed in further detail at your follow-up appointment, if applicable. Please Follow Up With: René Forde MD When: for suspicion of seizure like movement in 3-4 weeeks Please Follow Up With: Terry Luis MD - in 4 weeks When: FOR Syncope, possible PAFIB, Sinus arrthymia with PVC in hospital
--- NOTE | 2020-08-15 13:12 | DS.PCM_ITS ---
Discharge Date and Diagnosis - Problem List Patient Problems: Active and Suspected Problems Syncope (Acute) Date of Admission: 08/14/20 Date of Discharge: 08/14/20 - Primary Discharge Diagnosis Acute Problems: Active Problems Syncope (Acute) Near syncope/syncope possible vasovagal syncope or convulsive syncope - Secondary Discharge Diagnosis Chronic Problems: Chronic Problems Diabetes (Chronic) COPD (chronic obstructive pulmonary disease) (Chronic) Former tobacco use (Chronic) Hospital Course and Treatment Imaging Results: 08/14/20 02:44 Echo Complete [ECHO] Routine Summary of Care Provided: The patient is a 84 year old F with multiple comorbidities was admitted with dizziness, staring look and near syncope. As per the daughter her eyes were open and she did not pass out but patient feels she passed out. As per the daughter, she had twitching/involuntary movement, stiffness of upper body and upper extremities. She also had urinary and fecal incontinence but this is not uncommon for her as she has chronically more fecal incontinence then urinary incontinence for many years. She has chronic diarrhea. She also had urinary bladder mesh repair in early . [] She was admitted on the telemetry, PCU floor. MRI brain was done shows chronic involutional change but no acute infarct or seizure-like focus. EEG shows normal awake and drowsy EEG study with normal 9 Hz posterior background rhythm. No epileptiform discharges, seizure patterns or lateralizing signs. I talked w ith the neurologist, Dr. Biggs and he does not think clinically she had seizure. She not had any tongue bite. 30-day event monitor recommended as patient has sinus arrhythmia there is suspicion she might have paroxysmal A. fib although it was not seen on display decorator 48 hours. Orthostatic hypotension negative. 2D echo done and reported as below Interpretation Summary Normal LV size. Mild concentric left ventricular hypertrophy. Left ventricular systolic function is normal. The estimated ejection fraction is 65 %. Stage 1 diastolic dysfunction. Pulmonary artery systolic pressure is 30 mmHg. Mild leukocytosis with lymphopenia resolved. Serum electrolytes within normal limits. A1c 6.2. UA negative no clinically dysuria therefore no UTI. Comorbidities diabetes mellitus type 2, COPD with chronic exertional dyspnea, former nicotine/cigarette smoking: A1c 6.2. Glucose well controlled. Discharge medication reconciliation done. Discharge follow-up instructions completed. Clinical course, lab findings, imaging and EEG and discharge process discussed with the patient and patient's daughter Viviana phone #[phone] and all questions were answered to patient's satisfaction. Advised to follow-up with neurologist and we had 30-day event monitor. 30-day event monitor approved by Dr. Luis Total time spent, exact 35 minutes on discharge meds reconciliation, examinati on, coordination of care with nurses and ancillary staff, review of imaging and blood test and discussion with the patient on follow-up instructions Clinical Impression(s) from Imaging Studies Chest X-Ray 08/13/20 23:48 IMPRESSION: Small right pleural effusion. Electronically Signed: Ja Cross at 1:03 EST Tel , Service support , Brain MRI 08/14/20 11:12 IMPRESSION: Involutional changes of the brain, as described above. Electronically Signed: Marc Negron MD at 14:01 EST , Service support , Patient Problems: Active and Suspected Problems Syncope (Acute) Objective: Patient does not have dizziness, lightheadedness or further syncope while in the hospital. 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 Patient has sinus rhythm with sinus arrhythmia. At times he had sinus tachycardia 128 bpm shortly after admission and then sinus arrhythmia with PVCs. Never had A. fib rhythm. Patient walked with physical therapy Dizziness lightheadedness. Physical exam General: Alert, Oriented x3, Cooperative HEENT: Atraumatic, PERRLA, EOMI, Normocephalic Oral: No Gingival or Mucosal Lesions/ Ulcerations Neck: Supple, No JVD, Negative Carotid Bruits Lungs: Air entry diminished in bilateral lung bases. No crepitation/rhonchi Cardiovascular: Sinus arrhythmia with PVCs. Normal S1, Normal S2, No murmurs Abdomen: Bowel Sounds Present, Soft, Non Tender, Non-Distended : No renal angle tenderness. No suprapubic tenderness. Extremities: No edema, Capillary Refill Less than 3 Seconds Skin: No rashes, No breakdown Musculoskeletal: No Tenderness to Palpation of Joints or Extremities Neurological: Cranial nerves II-XII grossly intact, Deep Tendon Reflexes 2+/4 and Symmetrical, Neuro grossly intact Psych/Mental Status: Normal Affect, Appropriate. - Physical Exam Vitals/I&O's: Vital Signs Temp Pulse Resp BP Pulse Ox 98.2 F 86 15 115/59 L 95 08/14/20 02:35 08/14/20 07:05 08/14/20 03:00 08/14/20 03:20 08/14/20 03:00 Oxygen Delivery Method Room Air Weight: 158 lb 1.143 oz Body Mass Index (BMI) 24.0 Orthostatic Vital Signs Start: 08/14/20 03:20 Freq: q24h Status: Active Protocol: Activity Type Activity Date Activity User E-Sign Co-Sign Detail Recorded Client Recorded Date Recorded By Document 08/14/20 03:20 [facility] [id number] 08/14/20 03:22 [facility] 08/14/20 03:20 Orthostatic Vitals Standing -Blood Pressure (90/60-120/80 mm Hg) 110/62 -Extremity Use Right Arm -Pulse Rate (60-100 beats/min) 83 Sitting -Blood Pressure (90/60-120/80 mm Hg) 119/62 -Extremity Use Right Arm -Pulse Rate (60-100 beats/min) 78 Lying -Blood Pressure (90/60-120/80 mm Hg) 115/59 L -Extremity Use Right Arm -Pulse Rate (60-100 beats/min) 67 Intake and Output for Last 24 Hours 08/12/20 08/13/20 08/14/20 23:59 23:59 23:59 Intake Total 500 / 500 Balance 500 / 500 Laboratory Results 08/13/20 21:05: WBC 11.5 H, RBC 5.00, Hgb 15.0, Hct 45.6, MCV 91.2, MCH 30.0, MCHC 32.9, RDW Std Deviation 45.1 H, RDW Coeff of Collins 13.6, Plt Count 212, MPV 10.7, Immature Gran % (Auto) 0.400, Neut % (Auto) 85.3 H, Lymph % (Auto) 7.1 L, Hill % (Auto) 5.3, Eos % (Auto) 1.5, Baso % (Auto) 0.4, Absolute Neuts (auto) 9.8 H, Absolute Lymphs (auto) 0.81 L, Nucleated RBC % 0 08/13/20 21:05: Sodium 138, Potassium 3.9, Chloride 106, Carbon Dioxide 28.0, Anion Gap 4 L, BUN 13, Creatinine 1.01, Estim Creat Clear Calc 41.83, Est GFR (MDRD) Af Amer 67, Est GFR (MDRD) Non-Af 55 L, BUN/Creatinine Ratio 12.9, Glucose 179 H, Calcium 8.7, Troponin I < 0.015 08/13/20 22:12: Urine Color Yellow, Urine Clarity Sl. Cloudy, Urine pH 8.0, Ur Specific [place] 1.015, Urine Protein 15 H, Urine Glucose (UA) 50 H, Urine Ketones Negative, Urine Occult Blood Negative, Urine Nitrite Negative, Urine Bilirubin Negative, Urine Urobilinogen Normal, Ur Leukocyte Esterase 25 H, Urine RBC 0 SEEN, Urine WBC 0-5 SEEN, Ur Squamous Epith Cells 0-5 SEEN, Urine Bacteria RARE, Urine Mucus 0 SEEN 08/14/20 03:50: Magnesium 2.1, Troponin I < 0.015 08/14/20 06:14: Troponin I < 0.015 08/14/20 06:25: Sodium 138, Potassium 4.2, Chloride 106, Carbon Dioxide 26.0, Anion Gap 6, BUN 9, Creatinine 0.90, Estim Creat Clear Calc 46.94, Est GFR (MDRD) Af Amer 76, Est GFR (MDRD) Non-Af 63, BUN/Creatinine Ratio 10.0, Glucose 157 H, Calcium 8.7, Total Bilirubin 0.80, AST 17, ALT 18, Alkaline Phosphatase 110, Total Protein 7.0, Albumin 3.4, Globulin 3.6, Albumin/Globulin Ratio 0.9 08/14/20 06:25: Hemoglobin A1c 6.2 H 08/14/20 06:25: WBC 10.2, RBC 4.87, Hgb 14.4, Hct 44.3, MCV 91.0, MCH 29.6, MCHC 32.5, RDW Std Deviation 44.6 H, RDW Coeff of Collins 13.6, Plt Count 209, MPV 10.8, Immature Gran % (Auto) 0.200, Neut % (Auto) 83.7 H, Lymph % (Auto) 8.1 L, Hill % (Auto) 7.2, Eos % (Auto) 0.3, Baso % (Auto) 0.5, Absolute Neuts (auto) 8.5 H, Absolute Lymphs (auto) 0.83, Nucleated RBC % 0 08/14/20 07:04: POC Glucose 151 H 08/14/20 09:34: Troponin I Pending Current Medications Acetaminophen (Acetaminophen 325 Mg Tablet) 650 mg PO Q6H PRN PRN PRN Reason: Pain Score 1-10/Temp > 100.7 F Al Hydroxide/Mg Hydroxide (Mag Hydrox/Al Hydrox/Simeth 30 Ml Udc) 30 ml PO Q6H PRN PRN PRN Reason: Gastric Burning Albuterol Sulfate (Albuterol 2.5 Mg/3 Ml Vial.Neb.) 2.5 mg INHALATION Q2H PRN PRN PRN Reason: Dyspnea, wheezing Albuterol/Ipratropium (Ipratropium/Albuterol Sulfate 3 Ml Ampul.Neb) 3 ml INHALATION Q6HWA.RT GET Enoxaparin Sodium (Enoxaparin 40 Mg/0.4 Ml Syringe) 40 mg SC DAILY GET Guaifenesin (Guaifenesin 10 Ml Udc (200mg/10ml)) 20 ml PO Q4H PRN PRN PRN Reason: COUGH Hydralazine HCl (Hydralazine 20 Mg/Ml Vial) 10 mg IV Q4H PRN PRN PRN Reason: SBP > 160 Sodium Chloride () 1,000 mls @ 100 mls/hr IV .Q10H GET Last Admin: 08/14/20 02:58 Dose: 100 mls/hr Documented by: Insulin Human Lispro (Insulin Lispro 100 Unit/Ml Insuln.Pen) 0 unit SC ACHS [facility]; Protocol Last Admin: 08/14/20 07:11 Dose: 1 units Documented by: Magnesium Hydroxide (Magnesium Hydroxide 30 Ml Udc) 30 ml PO DAILY PRN PRN PRN Reason: Constipation Melatonin (Melatonin 3 Mg Tablet) 3 mg PO QHS PRN PRN PRN Reason: INSOMNIA Morphine Sulfate (Morphine 2 Mg/Ml Syringe) 2 mg IV Q3H PRN PRN PRN Reason: Pain Score 6-10 Nitroglycerin (Nitroglycerin (Inpatient Use) 0.4 Mg Tab.Subl) 0.4 mg SUBLINGUAL Q5M PRN PRN Reason: CARDIAC/CHEST PAIN Ondansetron HCl (Ondansetron 4 Mg/2 Ml Vial) 4 mg IV Q8H PRN PRN PRN Reason: NAUSEA/VOMITING Oxycodone HCl (Oxycodone 5 Mg Tablet) 5 mg PO Q4H PRN PRN PRN Reason: Pain Score 4-5 Prochlorperazine Edisylate (Prochlorperazine 10 Mg/2 Ml Vial) 5 mg IV Q4H PRN PRN PRN Reason: Breakthrough Nausea/Vomiting Psyllium Hydrophilic Mucilloid (Psyllium 1 Packet) 1 packet PO DAILY PRN PRN PRN Reason: Constipation Senna/Docusate Sodium (Senna/Docusate Sodium 1 Tablet) 2 tablet PO BID PRN PRN PRN Reason: Constipation Sodium Chloride (0.9% Saline Lock 10 Ml Syringe) 10 - 40 ml IV UD PRN PRN Reason: SALINE FLUSH Throat Lozenges (Benzocaine/Menthol 1 Lozenge) 1 lozenge MUCOUS MEM Q2H PRN PRN PRN Reason: SORE THROAT Discharge Activity: May Not Drive Call your doctor if you observe: Fever of 101 or Higher, Coldness, Increased Pain, Numbness or Tingling, Change in Color, Inability to urinate, Inability to have a bowel movement, Using more than one pad per hour, Shortness of breath, Dizziness, Fainting spells, Swelling in the ankles, Chest pain, Prolonged hiccoughing, Increased palpitations (irregular heartbeat), Calf discomfort Home Medications: Medications to take at Discharge Cholecalciferol (VIT D3) [Vitamin D3] 1,000 unit PO DAILY 08/13/20 Other Amb Orders: 30 Day Event Recorder [employer] [[facility]] Location: None Selected Primary Care Physician: Yuko Cleveland NP, CEMENT CUTTER-C [Primary Care Provider] - Please follow up with your Primary Care Physician in: in 2 weeks Medical Necessity - Tobacco Use Smoking Status: Former smoker Tobacco Use: Non-smoker Meaningful Use Info Meaningful Use Diagnoses (Choose all that apply): None applicable OBSV E&M: 19399 Observation care discharge
== END 2020-08-15 09:25 | disposition home or self-care (01) ==
LOC: ED 08-14 00:13 → PCU 08-14 01:42
PROVIDERS: Admitting Provider Family Medicine; Emergency Provider Emergency Medicine; PCP Nurse Practitioner; Visit Provider Internal Medicine
DX: R55 Syncope and collapse (principal); J44.9 Chronic obstructive pulmonary disease, unspecified; R11.2 Nausea with vomiting, unspecified; E11.9 Type 2 diabetes mellitus without complications; Z87.891 Personal history of nicotine dependence; E55.9 Vitamin D deficiency, unspecified; D72.810 Lymphocytopenia; D72.829 Elevated white blood cell count, unspecified; N39.41 Urge incontinence; R15.9 Full incontinence of feces; I25.10 Atherosclerotic heart disease of native coronary artery without angina pectoris
CPT/HCPCS: 36415; 70551; 71045; 80048; 80053; 81001; 82962; 83036; 83735; 84484; 85025; 93005; 93306; 94640; 95819; 96360; 96361; 96372; 97161; 97166; 99218; 99251; 99285; J7030; Q9957; A4216; G0378; G0463

== ENCOUNTER → 2020-09-14 14:29 | Outpatient (CLI) | payer MEDICARE, SELFPAY ==
[2020-08-14 02:20] VITALS: BMI 24.0
[2020-09-14 15:28] LABS: Absolute Neutrophil Count 4.7 X10^3/uL (2.0-7.7); Basophil# 0.05 X10^3/uL; Basophil% 0.7 % (0-1); Eosinophil# 0.32 X10^3/uL; Eosinophils% 4.3 % (0-5); Hematocrit 41.6 % (37-47); Hemoglobin 13.7 g/dL (12.0-15.0); Lymphocyte % 21.3 % (19-41); Mean Corp Hgb Conc 32.9 g/dL (32-36); Mean Corpuscular Hgb 29.8 pg (27.0-32.0); Mean Corpuscular Volume 90.6 fL (81-99); Mean Platelet Vol. 10.2 fl (6.2-12.0); Monocyte# 0.79 X10^3/uL; Monocyte% 10.5 % (0-10); NRBC Flagged by Analyzer 0 % (0-5); Neutrophil % 62.4 % (47-70); Platelet Count 303 K/mm3 (150-450); RBC Distribution Width SD 46.1 fl (35.1-43.9); Red Blood Count 4.59 M/mm3 (4.2-5.4); White Blood Count 7.5 K/mm3 (4.4-11.0)
[2020-09-14 16:06] LABS: ALB/GLOB Ratio 1.1 RATIO (0.9-2.4); AST(SGOT) 21 U/L (15-37); Alanine Aminotransfer ALT/SGPT 30 U/L (13-56); Albumin, Serum 3.7 g/dL (3.2-5.0); Alkaline Phosphatase 112 U/L (45-117); Anion Gap 3 (5-15); BUN 20 mg/dL (7-18); BUN/Creat Ratio 23.3 RATIO (10-20); Calcium,Total 8.5 mg/dL (8.5-10.1); Chloride 103 mmol/L (98-107); Creatinine, Serum 0.86 mg/dL (0.55-1.02); EST Glomerular Filtration Rate 67 mL/min (>60); Est Glom Filt Rate - Afr Amer 81 mL/min (>60); Globulin 3.5 g/dL (2.2-4.2); Glucose 114 mg/dL (74-106); Potassium 3.9 mmol/L (3.5-5.1); Protein, Total 7.2 g/dL (6.4-8.2); Sodium Level 135 mmol/L (136-145); Thyroid Stim Hormone (TSH) 1.68 uIU/mL (0.358-3.74)
== END ==
PROVIDERS: PCP Nurse Practitioner; Visit Provider Nurse Practitioner
DX: I48.92 Unspecified atrial flutter (principal); E11.9 Type 2 diabetes mellitus without complications
CPT/HCPCS: 36415; 80053; 84443; 85025

== ENCOUNTER → 2020-10-13 10:32 | Outpatient (CLI) | payer MEDICARE, SELFPAY ==
[2020-10-08 11:33] VITALS: BMI 25.2
== END ==
PROVIDERS: PCP Nurse Practitioner; Referring Provider Internal Medicine Cardiovascular Disease; Visit Provider Internal Medicine Cardiovascular Disease
DX: I48.92 Unspecified atrial flutter (principal)
CPT/HCPCS: 93225; 93226

== ENCOUNTER → 2020-10-21 08:25 | Outpatient (CLI) | payer MEDICARE, SELFPAY ==
[2020-10-08 11:33] VITALS: BMI 25.2
[2020-10-21 09:51] LABS: Prothrombin Time Fingerstick 16.7 SEC (11.9-14.4)
== END ==
PROVIDERS: PCP Nurse Practitioner; Referring Provider Internal Medicine Cardiovascular Disease; Visit Provider Internal Medicine Cardiovascular Disease
DX: I48.92 Unspecified atrial flutter (principal); Z79.01 Long term (current) use of anticoagulants
CPT/HCPCS: 36416; 85610

== ENCOUNTER → 2020-10-28 08:52 | Outpatient (CLI) | payer MEDICARE, SELFPAY ==
[2020-10-08 11:33] VITALS: BMI 25.2
== END ==
PROVIDERS: PCP Nurse Practitioner; Visit Provider Internal Medicine Cardiovascular Disease
DX: I48.92 Unspecified atrial flutter (principal); Z79.01 Long term (current) use of anticoagulants
CPT/HCPCS: 36416; 85610

== ENCOUNTER → 2020-11-04 04:39 | Outpatient (CLI) | payer MEDICARE, SELFPAY ==
[2020-10-08 11:33] VITALS: BMI 25.2
[2020-11-04 11:01] LABS: Prothrombin Time Fingerstick 14.9 SEC (11.9-14.4)
== END ==
PROVIDERS: PCP Nurse Practitioner; Referring Provider Internal Medicine Cardiovascular Disease; Visit Provider Internal Medicine Cardiovascular Disease
DX: I48.92 Unspecified atrial flutter (principal); Z79.01 Long term (current) use of anticoagulants
CPT/HCPCS: 36416; 85610

== ENCOUNTER → 2020-11-11 07:48 | Outpatient (CLI) | payer MEDICARE, SELFPAY ==
[2020-10-08 11:33] VITALS: BMI 25.2
== END ==
PROVIDERS: PCP Nurse Practitioner; Referring Provider Internal Medicine Cardiovascular Disease; Visit Provider Internal Medicine Cardiovascular Disease
DX: I48.92 Unspecified atrial flutter (principal); Z79.01 Long term (current) use of anticoagulants
CPT/HCPCS: 36416; 85610

== ENCOUNTER → 2020-11-18 07:43 | Outpatient (CLI) | payer MEDICARE, SELFPAY ==
[2020-10-08 11:33] VITALS: BMI 25.2
[2020-11-18 10:51] LABS: Prothrombin Time Fingerstick 17.6 SEC (11.9-14.4)
== END ==
PROVIDERS: PCP Nurse Practitioner; Visit Provider Internal Medicine Cardiovascular Disease
DX: I48.92 Unspecified atrial flutter (principal); Z79.01 Long term (current) use of anticoagulants
CPT/HCPCS: 36416; 85610

== ENCOUNTER → 2020-11-26 07:49 | Outpatient (CLI) | payer MEDICARE, SELFPAY ==
[2020-10-08 11:33] VITALS: BMI 25.2
[2020-11-26 09:51] LABS: Prothrombin Time Fingerstick 16.9 SEC (11.9-14.4)
== END ==
PROVIDERS: PCP Nurse Practitioner; Visit Provider Internal Medicine Cardiovascular Disease
DX: I48.92 Unspecified atrial flutter (principal); Z79.01 Long term (current) use of anticoagulants
CPT/HCPCS: 36416; 85610

== ENCOUNTER → 2020-12-03 09:25 | Outpatient (CLI) | payer MEDICARE, SELFPAY ==
[2020-10-08 11:33] VITALS: BMI 25.2
[2020-12-03 11:00] LABS: Prothrombin Time Fingerstick 22.1 SEC (11.9-14.4)
== END ==
PROVIDERS: PCP Nurse Practitioner; Visit Provider Internal Medicine Cardiovascular Disease
DX: I48.92 Unspecified atrial flutter (principal); Z79.01 Long term (current) use of anticoagulants
CPT/HCPCS: 36416; 85610

== ENCOUNTER → 2020-12-13 04:04 | Outpatient (REF) | payer MEDICARE, SELFPAY ==
[2020-10-08 11:33] VITALS: BMI 25.2
[2020-12-13 09:41] LABS: INR Fingerstick 3.9; Prothrombin Time Fingerstick 41.8 SEC (11.9-14.4)
== END ==
LOC: LAB 04:04
PROVIDERS: PCP Nurse Practitioner; Referring Provider Internal Medicine Cardiovascular Disease; Visit Provider Internal Medicine Cardiovascular Disease
DX: I48.92 Unspecified atrial flutter (principal); Z79.01 Long term (current) use of anticoagulants
CPT/HCPCS: 36416; 85610

== ENCOUNTER → 2020-12-20 07:15 | Outpatient (CLI) | payer MEDICARE, SELFPAY ==
[2020-10-08 11:33] VITALS: BMI 25.2
[2020-12-20 11:10] LABS: INR Fingerstick 2.7; Prothrombin Time Fingerstick 30.2 SEC (11.9-14.4)
== END ==
PROVIDERS: PCP Nurse Practitioner; Visit Provider Internal Medicine Cardiovascular Disease
DX: I48.92 Unspecified atrial flutter (principal); Z79.01 Long term (current) use of anticoagulants
CPT/HCPCS: 36416; 85610

== ENCOUNTER → 2021-01-03 09:03 | Outpatient (REF) | payer MEDICARE, SELFPAY ==
[2020-12-21 10:20] VITALS: BMI 23.6
[2021-01-03 10:45] LABS: INR Fingerstick 2.3; Prothrombin Time Fingerstick 25.7 SEC (11.9-14.4)
== END ==
LOC: LAB 09:03
PROVIDERS: PCP Nurse Practitioner; Referring Provider Internal Medicine Cardiovascular Disease; Visit Provider Internal Medicine Cardiovascular Disease
DX: I48.92 Unspecified atrial flutter (principal); Z79.01 Long term (current) use of anticoagulants
CPT/HCPCS: 36416; 85610

== ENCOUNTER → 2021-01-11 09:54 | Outpatient (CLI) | payer MEDICARE, SELFPAY ==
[2020-12-21 10:20] VITALS: BMI 23.6
--- NOTE | 2021-01-11 09:57 | CDU_ITS ---
Reason For Study: syncope Rt. Velocities/BP Lt. Velocities/BP Prox CCA 68.2/13.4 cm/sec. Prox CCA 82.5/17.3 cm/sec. Mid CCA 59.1/12.1 cm/sec. Mid CCA 77.7/16.3 cm/sec. Dist CCA 66.9/14.7 cm/sec. Dist CCA 68.3/17.3 cm/sec. Prox ICA 161.3/37.1 cm/sec. Prox ICA 66.2/14.6 cm/sec. Mid ICA 144.8/40.7 cm/sec. Mid ICA 92.6/27.8 cm/sec. Dist ICA 120.3/23.2 cm/sec. Dist ICA 87.1/23.4 cm/sec. Rt. ICA/CCA = 2.7. Lt. ICA/CCA = 1.2. Prox ECA 93.0/10.8 cm/sec. Prox ECA 93.7/11.3 cm/sec. Rt. Vert. 38.1/9.7 cm/sec. Lt. Vert. 42.1/11.3 cm/sec. Right Extracranial There is intimal thickening but no significant atherosclerotic plaque noted in the right common carotid artery. There is heterogeneous, irregular atherosclerotic plaque noted in the right internal carotid artery. There is homogeneous, smooth atherosclerotic plaque noted in the right external carotid artery. Antegrade flow is noted in the right vertebral artery. Left Extracranial There is intimal thickening but no significant atherosclerotic plaque noted in the left common carotid artery. There is heterogeneous, irregular atherosclerotic plaque noted in the left internal carotid artery. There is homogeneous, smooth atherosclerotic plaque noted in the left external carotid artery. Antegrade flow is noted in the left vertebral artery. Procedure Carotid Duplex [id number]. This is a Carotid Duplex examination using B-mode, color flow and specral Doppler. The exam was diagnostic. Exam performed in department. VL/Carotid Duplex Ultrasound Interpretation Summary Irregular plaque at the proximal right internal carotid artery with 50 to 69% s tenosis. Less than 50% stenosis right external carotid artery Irregular calcific plaque of the proximal left internal carotid artery with les s than 50% stenosis. Less than 50% stenosis left external carotid artery Patent and antegrade vertebral arteries bilaterally Ordering Physician: René Forde Performed By: Jorge Higgins RVT
== END ==
PROVIDERS: PCP Nurse Practitioner; Visit Provider Psychiatry & Neurology Neurology
DX: R55 Syncope and collapse (principal); I65.23 Occlusion and stenosis of bilateral carotid arteries; I67.9 Cerebrovascular disease, unspecified
CPT/HCPCS: 93880

== ENCOUNTER → 2021-01-24 04:02 | Outpatient (CLI) | payer MEDICARE, SELFPAY ==
[2020-12-21 10:20] VITALS: BMI 23.6
[2021-01-24 11:51] LABS: INR Fingerstick 1.9; Prothrombin Time Fingerstick 22.2 SEC (11.9-14.4)
== END ==
PROVIDERS: PCP Nurse Practitioner; Referring Provider Internal Medicine Cardiovascular Disease; Visit Provider Internal Medicine Cardiovascular Disease
DX: I48.92 Unspecified atrial flutter (principal); Z79.01 Long term (current) use of anticoagulants
CPT/HCPCS: 36416; 85610

== ENCOUNTER → 2021-02-07 09:12 | Outpatient (CLI) | payer MEDICARE, SELFPAY ==
[2020-12-21 10:20] VITALS: BMI 23.6
[2021-02-07 10:36] LABS: INR Fingerstick 1.9; Prothrombin Time Fingerstick 21.7 SEC (11.9-14.4)
== END ==
PROVIDERS: PCP Nurse Practitioner; Referring Provider Internal Medicine Cardiovascular Disease; Visit Provider Internal Medicine Cardiovascular Disease
DX: I48.92 Unspecified atrial flutter (principal); Z79.01 Long term (current) use of anticoagulants
CPT/HCPCS: 36416; 85610

== ENCOUNTER → 2021-02-23 08:55 | Outpatient (CLI) | payer MEDICARE, SELFPAY ==
[2021-02-22 14:09] VITALS: BMI 23.6
[2021-02-23 10:50] LABS: Prothrombin Time Fingerstick 23.1 SEC (11.9-14.4)
== END ==
PROVIDERS: PCP Nurse Practitioner; Visit Provider Internal Medicine Cardiovascular Disease
DX: I48.92 Unspecified atrial flutter (principal); Z79.01 Long term (current) use of anticoagulants
CPT/HCPCS: 36416; 85610

== ENCOUNTER → 2021-03-16 04:45 | Outpatient (CLI) | payer MEDICARE, SELFPAY ==
[2021-02-22 14:09] VITALS: BMI 23.6
[2021-03-16 10:11] LABS: INR Fingerstick 1.9; Prothrombin Time Fingerstick 21.9 SEC (11.9-14.4)
== END ==
PROVIDERS: PCP Nurse Practitioner; Referring Provider Internal Medicine Cardiovascular Disease; Visit Provider Internal Medicine Cardiovascular Disease
DX: I48.91 Unspecified atrial fibrillation (principal); Z79.01 Long term (current) use of anticoagulants; I48.92 Unspecified atrial flutter
CPT/HCPCS: 36416; 85610

== ENCOUNTER → 2021-03-30 09:09 | Outpatient (CLI) | payer MEDICARE, SELFPAY ==
[2021-02-22 14:09] VITALS: BMI 23.6
[2021-03-30 10:45] LABS: INR Fingerstick 2.1; Prothrombin Time Fingerstick 23.7 SEC (11.9-14.4)
== END ==
PROVIDERS: PCP Nurse Practitioner; Visit Provider Internal Medicine Cardiovascular Disease
DX: I48.92 Unspecified atrial flutter (principal); Z79.01 Long term (current) use of anticoagulants
CPT/HCPCS: 36416; 85610

== ENCOUNTER → 2021-04-14 05:01 | Outpatient (CLI) | payer MEDICARE, SELFPAY ==
[2021-02-22 14:09] VITALS: BMI 23.6
[2021-04-14 10:41] LABS: INR Fingerstick 2.2; Prothrombin Time Fingerstick 25.4 SEC (11.9-14.4)
== END ==
PROVIDERS: PCP Nurse Practitioner; Referring Provider Internal Medicine Cardiovascular Disease; Visit Provider Internal Medicine Cardiovascular Disease
DX: I48.92 Unspecified atrial flutter (principal); Z79.01 Long term (current) use of anticoagulants
CPT/HCPCS: 36416; 85610

== ENCOUNTER → 2021-05-06 08:49 | Outpatient (CLI) | payer MEDICARE, SELFPAY ==
[2021-02-22 14:09] VITALS: BMI 23.6
[2021-05-06 10:11] LABS: Prothrombin Time Fingerstick 22.6 SEC (11.9-14.4)
== END ==
PROVIDERS: PCP Nurse Practitioner; Visit Provider Internal Medicine Cardiovascular Disease
DX: I48.92 Unspecified atrial flutter (principal); Z79.01 Long term (current) use of anticoagulants
CPT/HCPCS: 36416; 85610

== ENCOUNTER → 2021-05-27 08:45 | Outpatient (CLI) | payer MEDICARE, SELFPAY ==
[2021-05-27 10:55] LABS: INR Fingerstick 1.9; Prothrombin Time Fingerstick 21.7 SEC (11.9-14.4)
== END ==
PROVIDERS: PCP Nurse Practitioner; Visit Provider Internal Medicine Cardiovascular Disease
DX: I48.92 Unspecified atrial flutter (principal); Z79.01 Long term (current) use of anticoagulants
CPT/HCPCS: 36416; 85610

== ENCOUNTER → 2021-06-10 08:44 | Outpatient (CLI) | payer MEDICARE, SELFPAY ==
[2021-06-10 12:22] LABS: International Normalized Ratio 1.8
== END ==
PROVIDERS: PCP Nurse Practitioner; Visit Provider Internal Medicine Cardiovascular Disease
DX: I48.92 Unspecified atrial flutter (principal); Z79.01 Long term (current) use of anticoagulants
CPT/HCPCS: 36415; 85610

== ENCOUNTER → 2021-06-17 09:13 | Outpatient (CLI) | payer MEDICARE, SELFPAY ==
[2021-06-17 12:55] LABS: INR Fingerstick 1.4; Prothrombin Time Fingerstick 16.6 SEC (11.9-14.4)
== END ==
PROVIDERS: PCP Nurse Practitioner; Visit Provider Internal Medicine Cardiovascular Disease
DX: I48.92 Unspecified atrial flutter (principal); Z79.01 Long term (current) use of anticoagulants
CPT/HCPCS: 36416; 85610

== ENCOUNTER → 2021-06-30 16:00 | Outpatient (CLI) | payer MEDICARE, SELFPAY ==
[2021-02-22 14:09] VITALS: BMI 23.6
--- NOTE | 2021-06-30 16:14 | BI_ITS ---
MAMMOGRAPHY - BILATERAL SCREENING 3-D TOMOSYNTHESIS REASON FOR EXAM: Female, 85 years old. SCREENING PERTINENT HISTORY: No significant family history. TECHNIQUE: 2-D mammograms and 3-D Tomosynthesis of the breast (s) were performed. CAD was performed. COMPARISON: 09/02/2019 FINDINGS: The breast composition is heterogeneously dense that can obscure small breast masses. Scattered benign calcifications are seen. No dense spiculated masses or suspicious microcalcifications are identified. No architectural distortion is identified. There is no skin thickening or retraction. There has been no significant change since the prior study. Bilateral benign rodlike calcifications. BI/SCRN MAMM (CAD)W/GIANNA BILAT IMPRESSION: No mammographic signs of malignancy. Routine yearly mammograms recommended. ASSESSMENT CATEGORY: BIRADS Category 2: Benign. A letter regarding these results will be sent to the patient by the facility within 30 days. FOLLOW UP RECOMMENDATION: Yearly follow up mammogram recommended. (A) Approximately 10% of breast cancers are not detected by mammography. A normal mammogram should not delay biopsy of a clinically suspicious abnormality. Electronically Signed: Nikolay Aguayo MD at 18:11 EDT Tel , Service support ,
== END ==
PROVIDERS: PCP Nurse Practitioner; Referring Provider Nurse Practitioner; Visit Provider Nurse Practitioner
DX: Z12.31 Encounter for screening mammogram for malignant neoplasm of breast (principal)
CPT/HCPCS: 77063; 77067

== ENCOUNTER → 2021-07-01 07:55 | Outpatient (CLI) | payer MEDICARE, SELFPAY ==
[2021-07-01 11:25] LABS: Prothrombin Time Fingerstick 23.1 SEC (11.9-14.4)
== END ==
PROVIDERS: PCP Nurse Practitioner; Visit Provider Internal Medicine Cardiovascular Disease
DX: I48.92 Unspecified atrial flutter (principal); Z79.01 Long term (current) use of anticoagulants
CPT/HCPCS: 36416; 85610

== ENCOUNTER → 2021-07-21 09:21 | Outpatient (CLI) | payer MEDICARE, SELFPAY ==
[2021-07-21 10:45] LABS: INR Fingerstick 2.1; Prothrombin Time Fingerstick 23.4 SEC (11.9-14.4)
== END ==
PROVIDERS: Referring Provider Internal Medicine Cardiovascular Disease; Visit Provider Internal Medicine Cardiovascular Disease
DX: I48.92 Unspecified atrial flutter (principal); Z79.01 Long term (current) use of anticoagulants
CPT/HCPCS: 36416; 85610

== ENCOUNTER → 2021-08-11 08:18 | Outpatient (CLI) | payer MEDICARE, SELFPAY ==
[2021-08-11 11:46] LABS: INR Fingerstick 2.1; Prothrombin Time Fingerstick 23.7 SEC (11.9-14.4)
== END ==
PROVIDERS: Visit Provider Internal Medicine Cardiovascular Disease
DX: I48.92 Unspecified atrial flutter (principal); Z79.01 Long term (current) use of anticoagulants
CPT/HCPCS: 36416; 85610

== ENCOUNTER → 2021-09-05 16:57 | Outpatient (CLI) | payer MEDICARE, SELFPAY ==
--- NOTE | 2021-09-05 17:07 | RAD_ITS ---
STUDY: X-RAY CHEST REASON FOR EXAM: Female, 85 years old. COPD TECHNIQUE: PA and lateral COMPARISON: 08/13/2020 FINDINGS: Lungs are hyperinflated but clear. Tiny calcified granuloma in right upper lobe. There is no demonstrated pleural abnormality. Normal size heart. Normal mediastinum and jovi. Normal visualized pulmonary arteries. Normal visualized aortic arch and descending thoracic aorta. Normal visualized thoracic spine. Normal visualized ribs, clavicles, and shoulders. There is no demonstrated abnormality of the visualized soft tissue structures of the upper abdomen. No significant change since prior exam RAD/Chest PA and Lateral IMPRESSION: Hyperinflation Old granulomatous disease. No acute disease Electronically Signed: Tucker Villatoro MD at 22:17 EST , Service support ,
[2021-09-05 17:59] LABS: Hematocrit 42.1 % (37-47); Hemoglobin 13.5 g/dL (12.0-15.0); Mean Corp Hgb Conc 32.1 g/dL (32-36); Mean Corpuscular Hgb 28.7 pg (27.0-32.0); Mean Corpuscular Volume 89.4 fL (81-99); Mean Platelet Vol. 10.9 fl (6.2-12.0); Platelet Count 235 K/mm3 (150-450); RBC Distribution Width CV 13.6 % (11.6-14.6); RBC Distribution Width SD 44.2 fl (35.1-43.9); Red Blood Count 4.71 M/mm3 (4.2-5.4); White Blood Count 6.2 K/mm3 (4.4-11.0)
[2021-09-05 18:43] LABS: AST(SGOT) 30 U/L (15-37); Alanine Aminotransfer ALT/SGPT 28 U/L (13-56); Albumin, Serum 3.8 g/dL (3.2-5.0); Alkaline Phosphatase 100 U/L (45-117); Anion Gap 7 (5-15); BUN 19 mg/dL (7-18); BUN/Creat Ratio 19.4 RATIO (10-20); Calcium,Total 9.6 mg/dL (8.5-10.1); Chloride 100 mmol/L (98-107); Creatinine, Serum 0.98 mg/dL (0.55-1.02); EST Glomerular Filtration Rate 57 mL/min (>60); Est Glom Filt Rate - Afr Amer 69 mL/min (>60); Globulin 3.9 g/dL (2.2-4.2); Glucose 97 mg/dL (74-106); Potassium 4.3 mmol/L (3.5-5.1); Protein, Total 7.7 g/dL (6.4-8.2); Sodium Level 136 mmol/L (136-145); Thyroid Stim Hormone (TSH) 3.02 uIU/mL (0.358-3.74)
== END ==
PROVIDERS: PCP Nurse Practitioner; Referring Provider Nurse Practitioner; Visit Provider Nurse Practitioner
DX: J44.9 Chronic obstructive pulmonary disease, unspecified (principal); E11.9 Type 2 diabetes mellitus without complications
CPT/HCPCS: 36415; 71046; 80053; 84443; 85027

== ENCOUNTER → 2021-09-08 08:44 | Outpatient (CLI) | payer MEDICARE, SELFPAY ==
[2021-09-08 11:01] LABS: INR Fingerstick 1.8; Prothrombin Time Fingerstick 20.8 SEC (11.9-14.4)
== END ==
PROVIDERS: PCP Nurse Practitioner; Visit Provider Internal Medicine Cardiovascular Disease
DX: I48.92 Unspecified atrial flutter (principal); Z79.01 Long term (current) use of anticoagulants
CPT/HCPCS: 36416; 85610

== ENCOUNTER → 2021-09-19 09:50 | Outpatient (CLI) | payer MEDICARE, SELFPAY ==
[2021-09-19 11:31] LABS: Prothrombin Time Fingerstick 22.7 SEC (11.9-14.4)
== END ==
PROVIDERS: PCP Nurse Practitioner; Visit Provider Internal Medicine Cardiovascular Disease
DX: I48.92 Unspecified atrial flutter (principal); Z79.01 Long term (current) use of anticoagulants
CPT/HCPCS: 36416; 85610

== ENCOUNTER 2021-10-25 04:47 | Outpatient (CLI) | payer MEDICARE, SELFPAY ==
[2021-10-25 11:32] LABS: International Normalized Ratio 1.8; Prothrombin Time (Protime)PT. 20.1 SECONDS (11.7-14.9)
[2021-10-25 13:30] LABS: INR Fingerstick 4.8; Prothrombin Time Fingerstick 52.2 SEC (11.9-14.4)
== END 2021-10-25 23:59 | disposition short-term general hospital (02) ==
LOC: LAB 04:48
PROVIDERS: PCP Nurse Practitioner; Visit Provider Internal Medicine Cardiovascular Disease
DX: I48.92 Unspecified atrial flutter (principal); Z79.01 Long term (current) use of anticoagulants
CPT/HCPCS: 36416; 85610

== ENCOUNTER 2021-11-08 09:03 | Outpatient (CLI) | payer MEDICARE, SELFPAY ==
[2021-11-09 09:51] LABS: INR Fingerstick 1.9; Prothrombin Time Fingerstick 22.8 SEC (11.9-14.4)
== END 2021-11-08 23:59 | disposition home or self-care (01) ==
LOC: LAB 09:07
PROVIDERS: PCP Nurse Practitioner; Visit Provider Internal Medicine Cardiovascular Disease
DX: I48.92 Unspecified atrial flutter (principal); Z79.01 Long term (current) use of anticoagulants
CPT/HCPCS: 36416; 85610

== ENCOUNTER 2021-11-15 04:35 | Outpatient (CLI) | payer MEDICARE, SELFPAY ==
[2021-11-15 10:11] LABS: Prothrombin Time Fingerstick 23.7 SEC (11.9-14.4)
== END 2021-11-15 23:59 | disposition home or self-care (01) ==
LOC: LAB 04:37
PROVIDERS: PCP Nurse Practitioner; Visit Provider Internal Medicine Cardiovascular Disease
DX: I48.92 Unspecified atrial flutter (principal); Z79.01 Long term (current) use of anticoagulants
CPT/HCPCS: 36416; 85610

== ENCOUNTER 2021-12-01 09:26 | Outpatient (CLI) | payer MEDICARE, SELFPAY ==
[2021-12-01 11:16] LABS: INR Fingerstick 1.7; Prothrombin Time Fingerstick 20.7 SEC (11.7-14.9)
== END 2021-12-01 23:59 | disposition home or self-care (01) ==
LOC: LAB 09:27
PROVIDERS: PCP Nurse Practitioner; Referring Provider Internal Medicine Cardiovascular Disease; Visit Provider Internal Medicine Cardiovascular Disease
DX: I48.92 Unspecified atrial flutter (principal); Z79.01 Long term (current) use of anticoagulants
CPT/HCPCS: 36416; 85610

== ENCOUNTER 2021-12-14 09:24 | Outpatient (CLI) | payer MEDICARE, SELFPAY ==
[2021-12-14 11:12] LABS: Prothrombin Time Fingerstick 23.7 SEC (11.7-14.9)
== END 2021-12-14 23:59 | disposition home or self-care (01) ==
LOC: LAB 09:26
PROVIDERS: PCP Nurse Practitioner; Visit Provider Internal Medicine Cardiovascular Disease
DX: I48.92 Unspecified atrial flutter (principal); Z79.01 Long term (current) use of anticoagulants
CPT/HCPCS: 36416; 85610

== ENCOUNTER 2021-12-28 08:17 | Outpatient (CLI) | payer MEDICARE, SELFPAY ==
[2021-12-28 11:07] LABS: INR Fingerstick 4.4; Prothrombin Time Fingerstick 48.4 SEC (11.7-14.9)
[2021-12-28 11:25] LABS: Prothrombin Time (Protime)PT. 40.1 SECONDS (11.7-14.9)
[2021-12-28 11:32] LABS: International Normalized Ratio 4.3
== END 2021-12-28 23:59 | disposition home or self-care (01) ==
LOC: LAB 08:18
PROVIDERS: PCP Nurse Practitioner; Visit Provider Internal Medicine Cardiovascular Disease
DX: I48.92 Unspecified atrial flutter (principal); Z79.01 Long term (current) use of anticoagulants
CPT/HCPCS: 36416; 85610

== ENCOUNTER 2022-01-02 09:51 | Outpatient (CLI) | payer MEDICARE, SELFPAY ==
[2022-01-02 12:50] LABS: INR Fingerstick 2.1; Prothrombin Time Fingerstick 24.6 SEC (11.7-14.9)
== END 2022-01-02 23:59 | disposition home or self-care (01) ==
LOC: LAB 09:53
PROVIDERS: PCP Nurse Practitioner; Referring Provider Internal Medicine Cardiovascular Disease; Visit Provider Internal Medicine Cardiovascular Disease
DX: I48.92 Unspecified atrial flutter (principal); Z79.01 Long term (current) use of anticoagulants
CPT/HCPCS: 36416; 85610

== ENCOUNTER 2022-01-09 09:25 | Outpatient (CLI) | payer MEDICARE, SELFPAY ==
[2022-01-09 12:16] LABS: International Normalized Ratio 2.7; Prothrombin Time (Protime)PT. 28.3 SECONDS (11.7-14.9)
== END 2022-01-09 23:59 | disposition home or self-care (01) ==
LOC: LAB 09:26
PROVIDERS: PCP Nurse Practitioner; Visit Provider Internal Medicine Cardiovascular Disease
DX: I48.92 Unspecified atrial flutter (principal); Z79.01 Long term (current) use of anticoagulants
CPT/HCPCS: 36415; 85610

== ENCOUNTER 2022-01-12 13:38 | Outpatient (CLI) | payer MEDICARE, SELFPAY ==
--- NOTE | 2022-01-12 13:54 | CDU_ITS ---
Reason For Study: carotid stenosis Rt. Velocities/BP Lt. Velocities/BP Prox CCA 94.3/14.7 cm/sec. Prox CCA 87.6/16.3 cm/sec. Mid CCA 74.7/16.0 cm/sec. Mid CCA 93.7/21.2 cm/sec. Dist CCA 73.4/18.6 cm/sec. Dist CCA 96.1/20.0 cm/sec. Prox ICA 181.4/42.6 cm/sec. Prox ICA 85.1/17.6 cm/sec. Mid ICA 159.4/32.9 cm/sec. Mid ICA 112.1/29.8 cm/sec. Dist ICA 140.7/29.5 cm/sec. Dist ICA 121.1/31.6 cm/sec. Rt. ICA/CCA = 2.4. Lt. ICA/CCA = 1.3. Prox ECA 139.9/10.8 cm/sec. Prox ECA 127.9/7.2 cm/sec. Rt. Vert. 48.3/11.4 cm/sec. Lt. Vert. 49.5/7.7 cm/sec. Right Extracranial There is intimal thickening but no significant atherosclerotic plaque noted in the right common carotid artery. There is heterogeneous, irregular atherosclerotic plaque noted in the right internal carotid artery. There is homogeneous, smooth atherosclerotic plaque noted in the right external carotid artery. Antegrade flow is noted in the right vertebral artery. Left Extracranial There is intimal thickening but no significant atherosclerotic plaque noted in the left common carotid artery. There is heterogeneous, irregular atherosclerotic plaque noted in the left internal carotid artery. There is homogeneous, smooth atherosclerotic plaque noted in the left external carotid artery. Antegrade flow is noted in the left vertebral artery. Procedure Carotid Duplex [id number]. This is a Carotid Duplex examination using B-mode, color flow and specral Doppler. The exam was diagnostic. Exam performed in department. VL/Carotid Duplex Ultrasound Interpretation Summary Irregular plaque in the proximal right internal carotid artery with 50 to 69% s tenosis. Less than 50% stenosis right external carotid artery Irregular calcific plaque at the proximal left internal carotid artery with les s than 50% stenosis Less than 50% stenosis left external carotid artery Patent and antegrade vertebral arteries bilaterally Findings appears similar to the previous examination of January 11, 2021 Ordering Physician: Janine Goyal Performed By: Jorge Higgins RVT
== END 2022-01-12 23:59 | disposition home or self-care (01) ==
PROVIDERS: PCP Nurse Practitioner; Referring Provider Nurse Practitioner Family; Visit Provider Nurse Practitioner Family
DX: I48.92 Unspecified atrial flutter (principal); R55 Syncope and collapse; I65.29 Occlusion and stenosis of unspecified carotid artery; Z79.01 Long term (current) use of anticoagulants
CPT/HCPCS: 93880

== ENCOUNTER → 2022-01-24 | Outpatient (CLI) | payer MEDICARE, SELFPAY ==
[2022-01-24 12:35] LABS: INR Fingerstick 2.7; Prothrombin Time Fingerstick 31.3 SEC (11.7-14.9)
== END | disposition home or self-care (01) ==
PROVIDERS: PCP Nurse Practitioner; Visit Provider Internal Medicine Cardiovascular Disease
DX: I48.92 Unspecified atrial flutter (principal); Z79.01 Long term (current) use of anticoagulants
CPT/HCPCS: 36416; 85610

== ENCOUNTER → 2022-02-14 | Outpatient (CLI) | payer MEDICARE, SELFPAY ==
[2022-02-14 10:25] LABS: INR Fingerstick 1.8
== END | disposition home or self-care (01) ==
LOC: LAB 08:19
PROVIDERS: PCP Nurse Practitioner; Visit Provider Internal Medicine Cardiovascular Disease
DX: I48.92 Unspecified atrial flutter (principal); Z79.01 Long term (current) use of anticoagulants
CPT/HCPCS: 36416; 85610

== ENCOUNTER → 2022-03-02 | Outpatient (CLI) | payer MEDICARE, SELFPAY ==
[2022-03-02 10:40] LABS: INR Fingerstick 2.1; Prothrombin Time Fingerstick 24.8 SEC (11.7-14.9)
== END | disposition home or self-care (01) ==
PROVIDERS: PCP Nurse Practitioner; Visit Provider Internal Medicine Cardiovascular Disease
DX: I48.92 Unspecified atrial flutter (principal); Z79.01 Long term (current) use of anticoagulants
CPT/HCPCS: 36416; 85610

== ENCOUNTER → 2022-03-23 | Outpatient (CLI) | payer MEDICARE, SELFPAY ==
[2022-03-23 10:51] LABS: INR Fingerstick 1.4; Prothrombin Time Fingerstick 17.6 SEC (11.7-14.9)
== END | disposition home or self-care (01) ==
LOC: LAB 08:27
PROVIDERS: PCP Nurse Practitioner; Referring Provider Internal Medicine Cardiovascular Disease; Visit Provider Internal Medicine Cardiovascular Disease
DX: I48.92 Unspecified atrial flutter (principal); Z79.01 Long term (current) use of anticoagulants
CPT/HCPCS: 36416; 85610

== ENCOUNTER → 2022-03-30 | Outpatient (CLI) | payer MEDICARE, SELFPAY ==
[2022-03-30 10:26] LABS: INR Fingerstick 1.5; Prothrombin Time Fingerstick 17.7 SEC (11.7-14.9)
== END | disposition home or self-care (01) ==
LOC: LAB 08:33
PROVIDERS: PCP Nurse Practitioner; Referring Provider Internal Medicine Cardiovascular Disease; Visit Provider Internal Medicine Cardiovascular Disease
DX: I48.92 Unspecified atrial flutter (principal); Z79.01 Long term (current) use of anticoagulants
CPT/HCPCS: 36416; 85610

== ENCOUNTER → 2022-04-13 | Outpatient (CLI) | payer MEDICARE, SELFPAY ==
[2022-04-13 10:45] LABS: INR Fingerstick 1.8; Prothrombin Time Fingerstick 21.5 SEC (11.7-14.9)
== END | disposition home or self-care (01) ==
LOC: LAB 08:18
PROVIDERS: PCP Nurse Practitioner; Referring Provider Internal Medicine Cardiovascular Disease; Visit Provider Internal Medicine Cardiovascular Disease
DX: I48.92 Unspecified atrial flutter (principal); Z79.01 Long term (current) use of anticoagulants
CPT/HCPCS: 36416; 85610

== ENCOUNTER → 2022-04-27 | Outpatient (CLI) | payer MEDICARE, SELFPAY ==
[2022-04-27 11:10] LABS: INR Fingerstick 1.5; Prothrombin Time Fingerstick 18.1 SEC (11.7-14.9)
== END | disposition home or self-care (01) ==
LOC: LAB 08:19
PROVIDERS: PCP Nurse Practitioner; Referring Provider Internal Medicine Cardiovascular Disease; Visit Provider Internal Medicine Cardiovascular Disease
DX: I48.92 Unspecified atrial flutter (principal); Z79.01 Long term (current) use of anticoagulants
CPT/HCPCS: 36416; 85610

== ENCOUNTER → 2022-05-02 | Outpatient (CLI) | payer MEDICARE, SELFPAY ==
[2022-05-02 10:40] LABS: INR Fingerstick 1.3; Prothrombin Time Fingerstick 15.9 SEC (11.7-14.9)
== END | disposition home or self-care (01) ==
LOC: LAB 09:33
PROVIDERS: PCP Nurse Practitioner; Visit Provider Internal Medicine Cardiovascular Disease
DX: I48.92 Unspecified atrial flutter (principal); Z79.01 Long term (current) use of anticoagulants
CPT/HCPCS: 36416; 85610

== ENCOUNTER → 2022-05-09 | Outpatient (CLI) | payer MEDICARE, SELFPAY ==
[2022-05-09 10:56] LABS: INR Fingerstick 1.7; Prothrombin Time Fingerstick 20.3 SEC (11.7-14.9)
== END | disposition home or self-care (01) ==
LOC: LAB 08:39
PROVIDERS: PCP Nurse Practitioner; Visit Provider Internal Medicine Cardiovascular Disease
DX: I48.92 Unspecified atrial flutter (principal); Z79.01 Long term (current) use of anticoagulants
CPT/HCPCS: 36416; 85610

== ENCOUNTER → 2022-05-19 | Outpatient (CLI) | payer MEDICARE, SELFPAY ==
[2022-05-19 10:16] LABS: INR Fingerstick 1.7; Prothrombin Time Fingerstick 20.1 SEC (11.7-14.9)
== END | disposition home or self-care (01) ==
LOC: LAB 08:37
PROVIDERS: PCP Nurse Practitioner; Visit Provider Internal Medicine Cardiovascular Disease
DX: I48.92 Unspecified atrial flutter (principal); Z79.01 Long term (current) use of anticoagulants
CPT/HCPCS: 36416; 85610

== ENCOUNTER → 2022-05-25 | Outpatient (CLI) | payer MEDICARE, SELFPAY ==
[2022-05-25 10:51] LABS: INR Fingerstick 1.9; Prothrombin Time Fingerstick 22.8 SEC (11.7-14.9)
== END | disposition home or self-care (01) ==
LOC: LAB 08:47
PROVIDERS: PCP Nurse Practitioner; Referring Provider Internal Medicine Cardiovascular Disease; Visit Provider Internal Medicine Cardiovascular Disease
DX: I48.92 Unspecified atrial flutter (principal); Z79.01 Long term (current) use of anticoagulants
CPT/HCPCS: 36416; 85610

== ENCOUNTER → 2022-05-26 | Outpatient (CLI) | payer MEDICARE, SELFPAY ==
--- NOTE | 2022-05-26 10:45 | MRI_ITS ---
ACR Level 3 findings have been noted. An addendum which confirms receipt of the report will follow. STUDY: MRI RIGHT FOREFOOT WITH AND WITHOUT CONTRAST REASON FOR EXAM: Diabetic foot ulcer of the right third toe for one week, swelling. TECHNIQUE: Standardized fat and water weighted pulse sequences were obtained in all 3 orthogonal planes, before and after intravenous administration of 14ml of Clariscan. COMPARISON: None. FINDINGS: There is arthrosis of the metatarsophalangeal joint of the hallux with marginal osteophytes and chondral thinning (T1 sagittal images 6-8). There is arthrosis of the sesamoids-first metatarsal articulations with small marginal osteophytes and chondral thinning (T1 short axis images 20-22). Normal interphalangeal joint of the hallux. Normal proximal and distal phalanges of the great toe. Normal medial and lateral heads of the flexor hallucis brevis tendons. Normal flexor and extensor hallucis longus tendons. Normal second through fifth metatarsophalangeal (MTP) joints. Normal interphalangeal joints of the second through fifth toes. There is bone edema of the distal phalanx of the third toe (inversion recovery sagittal image 19) with decreased T1 bone marrow signal (T1 sagittal image 19) and contrast enhancement (postcontrast T1 sagittal image 20) consistent with osteomyelitis. There is no bone edema of the proximal or middle phalanges of the third digit. There are hammertoe deformities of the lesser toes. Normal flexor and extensor tendons of the second through fifth toes. Normal first through fourth intermetatarsal spaces. Normal visualized metatarsi. Normal intrinsic muscles of the forefoot. There is edema in the subcutis adipose space, especially of the fourth toe with contrast enhancement (postcontrast T1 sagittal images 18-21) consistent with cellulitis. There is no discrete fluid collection to indicate soft tissue abscess. There are pressure lesions in the subcutis adipose space plantar to the first through fifth metatarsophalangeal joints (T1 short axis images 18-24). 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 Cellulitis without demonstrated soft tissue abscess. 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 Pressure lesions in the subcutis adipose space plantar to the first through fifth metatarsophalangeal joints. Electronically Signed: Asa Vitale MD at 12:28 EDT ,
[2022-05-26 11:15] LABS: CREATININE FINGERSTICK < 0.9 mg/dL (0.55-1.02); EGFR FINGERSTICK > 60.0000 mL/min (>60)
== END | disposition home or self-care (01) ==
LOC: MRI 10:44
PROVIDERS: PCP Nurse Practitioner Primary Care; Visit Provider Nurse Practitioner Primary Care
DX: E11.621 Type 2 diabetes mellitus with foot ulcer (principal)
CPT/HCPCS: 73720; A9575

== ENCOUNTER 2022-05-31 17:36 | Emergency (ER) | payer MEDICARE, SELFPAY ==
[2022-05-31 17:37] VITALS: BP 117/57; PULSE 56; RESP 14; TEMP 36.1; O2SAT 95; BMI 23.9
--- NOTE | 2022-05-31 18:58 | EDS_ITS ---
HPI History of Present Illness Chief Complaint: Lower Extremity Injury Informant: patient and family Narrative Narrative: History is through patient and daughter. They are uncertain a lot of the details and times. Patient states that somewhere recently she had a pedicure. She thinks about 2 weeks after that she started to get some swelling and redness of her right middle toe. She thinks that maybe was in the range of 2 to 3 weeks ago but is not certain. She saw her primary physician. She was placed on an antibiotic. She does not know which 1. They then ordered an MRI. MRI results were back on the second of this month. She is evidently set to see a foot doctor but they are not sure who this is. She is on a new antibiotic. Their doctor stated that if they could not get into see the foot doctor soon they should come to the ER for IV antibiotics. Patient does not check her sugars at home so does not know if they are elevated. She takes metformin for diabetes. She does not feel sick or ill. No fevers chills sweats. No nausea vomiting. Of note, she is also on Coumadin for history of intermittent A. fib. The patient feels as though the swelling redness and pain of the toe are all gotten better on antibiotics. It sounds like she might be on Bactrim and Keflex now but they are not certain. But the patient states it is feeling better. [facility] Medical History (Updated 05/31/22 @ 21:[address] Valentin Hussein MD) COPD (chronic obstructive pulmonary disease) COVID-19 (08/25/20) Depression Former tobacco use History of pleural effusion (08/13/20) Hyperlipidemia intermediate current use of anticoagulant Osteoporosis Paroxysmal atrial flutter Syncope Type 2 diabetes mellitus without complication Vitamin D deficiency Home Medications albuterol sulfate 90 mcg/actuation aerosol inhaler 1 puff inhalation TID PRN 10/06/20 [History Last Taken Unknown] alendronate 70 mg tablet 70 mg PO QWEEK 10/06/20 [History Last Taken Unknown] atenolol 25 mg tablet 25 mg PO DAILY 10/06/20 [History Last Taken Unknown] budesonide-formoterol HFA 80 mcg-4.5 mcg/actuation aerosol inhaler (Symbicort) 2 puff inhalation BID 10/06/20 [History Last Taken Unknown] metformin 500 mg tablet,extended release 24 hr 500 mg PO DAILY 10/06/20 [History Last Taken Unknown] cholecalciferol (vitamin D3) 25 mcg (1,000 unit) tablet 25 mcg PO BID 10/08/20 [History Last Taken Unknown] furosemide 40 mg tablet 40 mg PO DAILY #90 tabs 11/04/21 [Rx Last Taken Unknown] warfarin 4 mg tablet 4 mg PO .COMPLEX #180 tabs 11/07/21 [Rx Last Taken Unknown] donepezil 10 mg tablet 10 mg PO QHS #30 tabs 01/23/22 [Rx Last Taken Unknown] Allergy/AdvReac Type Severity Reaction Status Date / Time No Known Allergies Allergy Verified 05/31/22 17:37 Family History Other Diabetes Surgical History History of bladder repair surgery History of hysterectomy Social History Smoking Status: Former smoker Tobacco: How many years used: 50 Electronic Cigarette Use: not used how long ago did patient quit smokin years second hand exposure: Yes (did so when she smoked ) alcohol intake: never substance use type: does not use caffeine: Yes Type: coffee Number of servings: 2 ROS ROS ED Constitutional Constitutional ED: Denies chills, fever(s), subjective or sweats ENT ENT ED: Denies rhinorrhea Cardiovascular Cardiovascular: Denies chest pain or palpitations Respiratory/Chest Respiratory/Chest: Denies cough or dyspnea Gastrointestinal Gastrointestinal: Denies nausea or vomiting Genitourinary Genitourinary ED: Denies hematuria Musculoskeletal Musculoskeletal: Reports other Details: See history of present illness. Patient states it does not hurt anymore. ; Denies myalgias Integumentary Reports other Details: Improving redness to right third toe. Neurologic Neurologic: Denies paresthesias Endocrine Endocrinology: Denies polydipsia or polyuria Hematologic/Lymphatic Hematologic/Lymphatic: Reports easy bleeding and easy bruising Allergic/Immunologic Allergic/Immunologic ED: Denies urticaria EXAM Physical Exam Const Vital Signs: 05/31/22 17:37 05/31/22 20:12 05/31/22 21:48 Temperature 97 F L 98.9 F 98.9 F Temperature Source Temporal Temporal Pulse Rate 56 L 78 66 Respiratory Rate 14 16 16 Blood Pressure 117/57 L 134/78 H 118/78 Blood Pressure Mean 77 96 Pulse Ox 95 98 97 Oxygen Delivery Method Room Air Room Air Positive well nourished General Appearance ED: NAD HEENT Reports moist mucous membranes Neck no lymphadenopathy Resp normal respiratory effort Cardio regular rate and regular rhythm GI normal to inspection, nondistended, normoactive bowel sounds Palpation: soft Back/Spine no CVA tenderness Extremity Extremity Narrative: She does have a bit of swelling to the middle toe on the right foot. It has a bit of callus formation on the tip. But its not red is not warm. There is no lymphangitic streaking. She has normal capillary refill and warmth of their feet. No sign of poor blood flow. I see no opening of the skin. No drainage. It looks like it is improving from what it sounds like it was. Patient states it was much more swollen red and painful. Neuro Sensorium / Orientation: alert Skin Skin Narrative: See above MDM MDM MDM Narrative Medical decision making narrative: Patient CBC is normal including white count. Electrolytes are overall normal. Glucose is actually reasonably well controlled at 120. Lactate is normal at 0.9. INR is 1.8. X-ray does show some osteomyelitis of the distal tuft of the third toe. This is consistent with the MRI. However, the patient feels she is improving. She is actually on doxycycline and cephalexin. Her daughter was able to get her meds. The swelling is down. She has no fevers or chills. No nausea vomiting. No white count. No lactate. No hyperglycemia. I did discuss the case with Dr. Golden. They will get her in earlier to be seen. She will likely need removal of that toe. She should stay on the antibiotics. Lab Data Attestation: I reviewed the patient's lab results. Labs: Laboratory Results - last 24 hr 05/31/22 05/31/22 05/31/22 19:17 19:17 19:17 WBC 6.8 RBC 4.81 Hgb 12.8 Hct 41.0 MCV 85.2 MCH 26.6 L MCHC 31.2 L RDW Std Deviation 45.5 H RDW Coeff of Collins 14.8 H Plt Count 221 MPV 10.3 Immature Gran % (Auto) 0.300 Neut % (Auto) 67.6 Lymph % (Auto) 18.6 L Burt % (Auto) 8.0 Eos % (Auto) 4.6 Baso % (Auto) 0.9 Absolute Neuts (auto) 4.6 Absolute Lymphs (auto) 1.26 Nucleated RBC % 0 PT INR Sodium 138 Potassium 3.9 Chloride 100 Carbon Dioxide 31.0 Anion Gap 7 BUN 25 H Creatinine 1.02 Estim Creat Clear Calc 38.50 Est GFR (MDRD) Af Amer 66 Est GFR (MDRD) Non-Af 55 L BUN/Creatinine Ratio 24.5 H Glucose 120 H Lactic Acid 0.9 Calcium 9.3 05/31/22 05/31/22 19:17 19:45 WBC RBC Hgb Hct MCV MCH MCHC RDW Std Deviation RDW Coeff of Collins Plt Count MPV Immature Gran % (Auto) Neut % (Auto) Lymph % (Auto) Burt % (Auto) Eos % (Auto) Baso % (Auto) Absolute Neuts (auto) Absolute Lymphs (auto) Nucleated RBC % PT Cancelled 20.9 H INR Cancelled 1.8 Sodium Potassium Chloride Carbon Dioxide Anion Gap BUN Creatinine Estim Creat Clear Calc Est GFR (MDRD) Af Amer Est GFR (MDRD) Non-Af BUN/Creatinine Ratio Glucose Lactic Acid Calcium Radiography Diagnostic Testing: Clinical Impression(s) from Imaging Studies Foot X-Ray 05/31/22 19:23 IMPRESSION: Acute osteomyelitis of the distal phalangeal tuft of the third toe Electronically Signed: Tucker Villatoro MD at 20:24 EDT Reading Location ID and State: [facility] / ID , Service support , Discharge Plan Triage Chief Complaint: Lower Extremity Injury ED Provider: Valentin Hussein Dx/Rx/DC Orders Clinical Impression: Osteomyelitis of third toe of right foot Instructions: Osteomyelitis Dc Prescriptions: No Action cholecalciferol (vitamin D3) 25 mcg (1,000 unit) tablet 25 mcg PO BID albuterol sulfate 90 mcg/actuation HFA aerosol inhaler 1 puff INHALATION TID PRN budesonide-formoterol [Symbicort] 80-4.5 mcg/actuation HFA aerosol inhaler 2 puff INHALATION BID alendronate 70 mg tablet 70 mg PO QWEEK Label Comments: TAKE 1 (ONE) TABLET ONCE A WEEK metformin 500 mg tablet extended release 24 hr 500 mg PO DAILY Label Comments: TAKE 1 (ONE) TABLET DAILY 30MIN BEFORE LARGEST MEAL atenolol 25 mg tablet 25 mg PO DAILY donepezil 10 mg tablet 10 mg PO QHS Qty: 30 9RF furosemide 40 mg tablet 40 mg PO DAILY Qty: 90 3RF warfarin 4 mg tablet 4 mg PO .COMPLEX Qty: 180 3RF Protocol: Dose Management Condition: Sunday Dose/Route: 8 mg Instruction: 2 x 4 mg tablets Condition: Sunday Dose/Route: 8 mg Instruction: 2 x 4 mg tablets Condition: Sunday Dose/Route: 8 mg Instruction: 2 x 4 mg tablets Condition: Sunday Dose/Route: 8 mg Instruction: 2 x 4 mg tablets Condition: Dose/Route: 8 mg Instruction: 2 x 4 mg tablets Condition: Sunday Dose/Route: 8 mg Instruction: 2 x 4 mg tablets Condition: Sunday Dose/Route: 8 mg Instruction: 2 x 4 mg tablets Protocol Text: Adjustment Start Date: 05/25/22 INR Value: 1.9 INR Date: 05/25/22 Recheck Date: 06/08/22 Rx Instructions: 4 mg PO 2 tablets (8mg) on and 1.5 tablets (6mg) on Sun,Sun, Sun; or as directed; Primary Care Provider: Bren Patiño NP Referrals: Jeovanny Fernandes, SOLANGEM [Med Staff - Active Staff] - 1 Day (Call tomorrow for an appointment as soon as possible. I contacted them tonight so they should be aware of the need for follow-up.) Bren Patiño NP, [employer] [Primary Care Provider] - Disposition Disposition: Home, Self Care Discharge Date/Time: 05/31/22 21:57
--- NOTE | 2022-05-31 19:23 | RAD_ITS ---
STUDY: X-RAY - RIGHT FOOT CLINICAL: Female, 86 years old. osteo TECHNIQUE: 3 view(s) of the foot. COMPARISON: None. FINDINGS: Normal talus,, and tarsal bones. Tiny plantar calcaneal spur. Normal visualized subtalar, talonavicular, calcaneocuboid, tarsal and tarsometatarsal articulations. Normal metatarsi. Arthritic changes of the metatarsophalangeal joint of the great toe. Normal tibial and fibular sesamoid bones. Normal interphalangeal joint of the great toe. Normal phalanges of the great toe. Normal second through fifth metatarsophalangeal joints. Normal interphalangeal joints of the lesser toes. Mild cortical disruption of the distal phalangeal tuft of the third toe which may be consistent with acute osteomyelitis. Soft tissue ulceration of the distal third toe. RAD/Foot min 3 Views IMPRESSION: Acute osteomyelitis of the distal phalangeal tuft of the third toe Electronically Signed: Tucker Villatoro MD at 20:24 EDT ,
[2022-05-31 19:25] LABS: Absolute Lymphocyte Count 1.26 X10^3/uL (0.83-4.51); Absolute Neutrophil Count 4.6 X10^3/uL (2.0-7.7); Basophil# 0.06 X10^3/uL; Basophil% 0.9 % (0-1); Eosinophil# 0.31 X10^3/uL; Eosinophils% 4.6 % (0-5); Hemoglobin 12.8 g/dL (12.0-15.0); Lymphocyte # 1.26 X10^3/ul (0.83-4.51); Lymphocyte % 18.6 % (19-41); Mean Corp Hgb Conc 31.2 g/dL (32-36); Mean Corpuscular Hgb 26.6 pg (27.0-32.0); Mean Corpuscular Volume 85.2 fL (81-99); Mean Platelet Vol. 10.3 fl (6.2-12.0); Monocyte# 0.54 X10^3/uL; NRBC Flagged by Analyzer 0 % (0-5); Neutrophil # 4.58 X10^3/uL (2.7-7.7); Neutrophil % 67.6 % (47-70); Platelet Count 221 K/mm3 (150-450); RBC Distribution Width CV 14.8 % (11.6-14.6); RBC Distribution Width SD 45.5 fl (35.1-43.9); Red Blood Count 4.81 M/mm3 (4.2-5.4); White Blood Count 6.8 K/mm3 (4.4-11.0)
[2022-05-31 19:42] LABS: Anion Gap 7 (5-15); BUN 25 mg/dL (7-18); BUN/Creat Ratio 24.5 RATIO (10-20); Calcium,Total 9.3 mg/dL (8.5-10.1); Chloride 100 mmol/L (98-107); Creatinine, Serum 1.02 mg/dL (0.55-1.02); EST Glomerular Filtration Rate 55 mL/min (>60); Est Glom Filt Rate - Afr Amer 66 mL/min (>60); Glucose 120 mg/dL (74-106); Potassium 3.9 mmol/L (3.5-5.1); Sodium Level 138 mmol/L (136-145)
[2022-05-31 19:49] LABS: Lactic Acid 0.9 mmol/L (0.4-1.9)
[2022-05-31] MEDS: Vancomycin IV 1,000 MG/200 ML BAG 200 MG IV (20:06)
[2022-05-31 20:12] VITALS: BP 134/78; PULSE 78; RESP 16; TEMP 37.2; O2SAT 98
[2022-05-31 20:31] LABS: International Normalized Ratio 1.8; Prothrombin Time (Protime)PT. 20.9 SECONDS (11.7-14.9)
[2022-05-31 21:48] VITALS: BP 118/78; PULSE 66; RESP 16; TEMP 37.2; O2SAT 97
[2022-05-31] MEDS: DiphenhydrAMINE 50 MG/ML Syringe 12.5 MG IV (21:53)
== END 2022-05-31 21:57 | disposition home or self-care (01) ==
PROVIDERS: Emergency Provider Emergency Medicine; PCP Nurse Practitioner Primary Care; Visit Provider Emergency Medicine
DX: E11.69 Type 2 diabetes mellitus with other specified complication (principal); M86.8X7 Other osteomyelitis, ankle and foot; J44.9 Chronic obstructive pulmonary disease, unspecified; I48.91 Unspecified atrial fibrillation; E78.5 Hyperlipidemia, unspecified; M81.0 Age-related osteoporosis without current pathological fracture; F32.A Depression, unspecified; Z79.84 Long term (current) use of oral hypoglycemic drugs; Z79.01 Long term (current) use of anticoagulants; Z79.899 Other long term (current) drug therapy; Z87.891 Personal history of nicotine dependence
CPT/HCPCS: 73630; 80048; 83605; 85025; 85610; 96365; 96366; 96375; 99283; J7050

== ENCOUNTER → 2022-06-08 | Outpatient (CLI) | payer MEDICARE, SELFPAY ==
[2022-06-08 11:50] LABS: INR Fingerstick 1.7; Prothrombin Time Fingerstick 20.5 SEC (11.7-14.9)
== END | disposition home or self-care (01) ==
LOC: LAB 08:51
PROVIDERS: PCP Nurse Practitioner Primary Care; Referring Provider Internal Medicine Cardiovascular Disease; Visit Provider Internal Medicine Cardiovascular Disease
DX: I48.92 Unspecified atrial flutter (principal); Z79.01 Long term (current) use of anticoagulants
CPT/HCPCS: 36416; 85610

== ENCOUNTER → 2022-06-22 | Outpatient (CLI) | payer MEDICARE, SELFPAY ==
[2022-06-22 11:06] LABS: INR Fingerstick 1.5; Prothrombin Time Fingerstick 18.4 SEC (11.7-14.9)
== END | disposition home or self-care (01) ==
LOC: LAB 08:45
PROVIDERS: PCP Nurse Practitioner Primary Care; Referring Provider Internal Medicine Cardiovascular Disease; Visit Provider Internal Medicine Cardiovascular Disease
DX: I48.92 Unspecified atrial flutter (principal); Z79.01 Long term (current) use of anticoagulants
CPT/HCPCS: 36416; 85610

== ENCOUNTER → 2022-07-13 | Outpatient (CLI) | payer MEDICARE, SELFPAY ==
[2022-07-13 10:40] LABS: INR Fingerstick 1.9; Prothrombin Time Fingerstick 22.2 SEC (11.7-14.9)
== END | disposition home or self-care (01) ==
LOC: LAB 08:21
PROVIDERS: PCP Nurse Practitioner Primary Care; Referring Provider Internal Medicine Cardiovascular Disease; Visit Provider Internal Medicine Cardiovascular Disease
DX: I48.92 Unspecified atrial flutter (principal); Z79.01 Long term (current) use of anticoagulants
CPT/HCPCS: 36416; 85610

== ENCOUNTER → 2022-08-03 | Outpatient (CLI) | payer MEDICARE, SELFPAY ==
[2022-08-03 10:56] LABS: INR Fingerstick 1.6; Prothrombin Time Fingerstick 19.5 SEC (11.7-14.9)
== END | disposition home or self-care (01) ==
LOC: LAB 09:21
PROVIDERS: PCP Nurse Practitioner Primary Care; Referring Provider Internal Medicine Cardiovascular Disease; Visit Provider Internal Medicine Cardiovascular Disease
DX: I48.92 Unspecified atrial flutter (principal); Z79.01 Long term (current) use of anticoagulants
CPT/HCPCS: 36416; 85610

== ENCOUNTER → 2022-08-21 | Outpatient (CLI) | payer MEDICARE, SELFPAY ==
[2022-08-21 10:41] LABS: INR Fingerstick 1.9; Prothrombin Time Fingerstick 22.7 SEC (11.7-14.9)
== END | disposition home or self-care (01) ==
LOC: LAB 09:08
PROVIDERS: PCP Nurse Practitioner Primary Care; Visit Provider Nurse Practitioner Primary Care
DX: I48.92 Unspecified atrial flutter (principal); Z79.01 Long term (current) use of anticoagulants
CPT/HCPCS: 36416; 85610

== ENCOUNTER → 2022-08-28 | Outpatient (CLI) | payer MEDICARE, SELFPAY | END | disposition home or self-care (01) | PROVIDERS: PCP Nurse Practitioner Primary Care; Visit Provider Nurse Practitioner Gerontology | DX: I48.92 Unspecified atrial flutter (principal) | CPT/HCPCS: 93225; 93226 ==

== ENCOUNTER → 2022-09-14 | Outpatient (CLI) | payer MEDICARE, SELFPAY ==
[2022-09-14 10:40] LABS: INR Fingerstick 1.4; Prothrombin Time Fingerstick 17.6 SEC (11.7-14.9)
== END | disposition home or self-care (01) ==
LOC: LAB 07:57
PROVIDERS: PCP Nurse Practitioner Primary Care; Referring Provider Internal Medicine Cardiovascular Disease; Visit Provider Internal Medicine Cardiovascular Disease
DX: I48.92 Unspecified atrial flutter (principal); Z79.01 Long term (current) use of anticoagulants
CPT/HCPCS: 36416; 85610

== ENCOUNTER → 2022-10-05 | Outpatient (CLI) | payer MEDICARE, SELFPAY ==
[2022-10-05 10:36] LABS: INR Fingerstick 1.1
== END | disposition home or self-care (01) ==
LOC: LAB 07:43
PROVIDERS: PCP Nurse Practitioner Primary Care; Referring Provider Internal Medicine Cardiovascular Disease; Visit Provider Internal Medicine Cardiovascular Disease
DX: Z79.01 Long term (current) use of anticoagulants (principal); I48.92 Unspecified atrial flutter
CPT/HCPCS: 36416; 85610

== ENCOUNTER → 2022-10-19 | Outpatient (CLI) | payer MEDICARE, SELFPAY ==
[2022-10-19 11:15] LABS: INR Fingerstick 1.6; Prothrombin Time Fingerstick 18.9 SEC (11.7-14.9)
== END | disposition home or self-care (01) ==
LOC: LAB 07:13
PROVIDERS: PCP Nurse Practitioner Primary Care; Referring Provider Internal Medicine Cardiovascular Disease; Visit Provider Internal Medicine Cardiovascular Disease
DX: I48.92 Unspecified atrial flutter (principal); Z79.01 Long term (current) use of anticoagulants
CPT/HCPCS: 36416; 85610

== ENCOUNTER → 2022-11-10 | Outpatient (CLI) | payer MEDICARE, SELFPAY ==
[2022-11-10 10:40] LABS: INR Fingerstick 1.2; Prothrombin Time Fingerstick 14.7 SEC (11.7-14.9)
== END | disposition home or self-care (01) ==
LOC: LAB 09:20
PROVIDERS: PCP Nurse Practitioner Primary Care; Visit Provider Internal Medicine Cardiovascular Disease
DX: I48.92 Unspecified atrial flutter (principal); Z79.01 Long term (current) use of anticoagulants
CPT/HCPCS: 36416; 85610

== ENCOUNTER → 2022-11-17 | Outpatient (CLI) | payer MEDICARE, SELFPAY ==
--- NOTE | 2022-11-17 15:09 | CDU_ITS ---
Reason For Study: carotid stenosis Rt. Velocities/BP Lt. Velocities/BP Prox CCA 65.5/11.6 cm/sec. Prox CCA 79.0/15.1 cm/sec. Mid CCA 65.5/13.5 cm/sec. Mid CCA 64.2/16.3 cm/sec. Dist CCA 70.2/15.4 cm/sec. Dist CCA 71.6/17.6 cm/sec. Prox ICA 152.1/38.9 cm/sec. Prox ICA 63.0/16.3 cm/sec. Mid ICA 177.7/40.7 cm/sec. Mid ICA 85.1/28.6 cm/sec. Dist ICA 108.9/20.5 cm/sec. Dist ICA 79.0/21.2 cm/sec. Rt. ICA/CCA = 2.7. Lt. ICA/CCA = 1.3. Prox ECA 89.1/7.8 cm/sec. Prox ECA 92.5/7.7 cm/sec. Rt. Vert. 36.0/9.0 cm/sec. Lt. Vert. 44.6/11.4 cm/sec. Right Extracranial There is intimal thickening but no significant atherosclerotic plaque noted in the right common carotid artery. There is heterogeneous, irregular atherosclerotic plaque noted in the right internal carotid artery. There is homogeneous, smooth atherosclerotic plaque noted in the right external carotid artery. Antegrade flow is noted in the right vertebral artery. Left Extracranial There is intimal thickening but no significant atherosclerotic plaque noted in the left common carotid artery. There is heterogeneous, irregular atherosclerotic plaque noted in the left internal carotid artery. There is homogeneous, smooth atherosclerotic plaque noted in the left external carotid artery. Antegrade flow is noted in the left vertebral artery. Procedure Carotid Duplex [id number]. This is a Carotid Duplex examination using B-mode, color flow and specral Doppler. The exam was diagnostic. Exam performed in department. VL/Carotid Duplex Ultrasound Interpretation Summary Irregular calcific plaque at the proximal right internal carotid artery. Tortuo sity of the right internal carotid artery. 50 to 69% stenosis of the right internal carotid arter y Less than 50% stenosis right external carotid artery Irregular calcific plaque at the proximal left internal carotid artery with les s than 50% stenosis Less than 50% stenosis left external carotid artery Patent and antegrade vertebral arteries bilaterally No change from the previous examination of January 12, 2022 Ordering Physician: René Forde Performed By: Jorge Higgins RVT
== END | disposition home or self-care (01) ==
LOC: CVS 15:08
PROVIDERS: PCP Nurse Practitioner Primary Care; Referring Provider Psychiatry & Neurology Neurology; Visit Provider Psychiatry & Neurology Neurology
DX: R55 Syncope and collapse (principal); I65.29 Occlusion and stenosis of unspecified carotid artery
CPT/HCPCS: 93880

== ENCOUNTER → 2024-03-05 | Outpatient (REF) | payer MEDICARE, SELFPAY ==
[2024-03-06 08:24] LABS: Color, Urine Yellow (Yellow); Glucose, Dipstick Normal (Normal); Ketone-Dipstick Negative (Negative); Leukocyte Esterase-Dipstick 25 /ul (Negative); Nitrite-Dipstick Negative (Negative); Occult Blood-Urine Negative /ul (Negative); Protein-Dipstick 15 mg/dl (Negative); Specific Gravity, Urine 1.015 (1.002-1.030); Urine Bilirubin Dipstick Negative (Negative); Urine Clarity Clear (Clear); Urine Urobilinogen Normal (Normal)
[2024-03-06 08:43] LABS: Bacteria 4+ /hpf (None Seen); Red Blood Cells-Urine 0-5 SEEN /hpf (0-5); Squamous Epithelial Cells - UA 0-5 SEEN /hpf (5-10); White Blood Cells 0-5 SEEN /hpf (0-5)
[2024-03-06 08:44] LABS: Calcium Oxalate Crystals Ur 2+ /hpf (<or=2+); Hyaline Cast 5-10 SEEN /lpf (0-5); Mucous, Urine 1+ /hpf (<or=2+)
== END ==
PROVIDERS: PCP Nurse Practitioner Primary Care; Referring Provider Nurse Practitioner Adult Health; Visit Provider Nurse Practitioner Adult Health
DX: R41.82 Altered mental status, unspecified (principal); G30.8 Other Alzheimer's disease; R46.89 Other symptoms and signs involving appearance and behavior
CPT/HCPCS: 81001; 87086; 87088

== ENCOUNTER → 2024-04-28 | Outpatient (CLI) | payer MEDICARE, SELFPAY ==
[2024-04-28 15:41] LABS: Hematocrit 37.7 % (37-47); Hemoglobin 12.1 g/dL (12.0-15.0); Mean Corp Hgb Conc 32.1 g/dL (32-36); Mean Corpuscular Hgb 30.3 pg (27.0-32.0); Mean Corpuscular Volume 94.3 fL (81-99); Mean Platelet Vol. 11.7 fl (6.2-12.0); Platelet Count 207 K/mm3 (150-450); RBC Distribution Width CV 15.9 % (11.6-14.6); RBC Distribution Width SD 54.4 fl (35.1-43.9); White Blood Count 6.4 K/mm3 (4.4-11.0)
[2024-04-28 15:56] LABS: Vitamin B12 283 pg/mL (211-911)
[2024-04-28 16:01] LABS: ALB/GLOB Ratio 0.9 RATIO (0.9-2.4); AST(SGOT) 18 U/L (15-37); Alanine Aminotransfer ALT/SGPT 17 U/L (13-56); Albumin, Serum 3.2 g/dL (3.2-5.0); Alkaline Phosphatase 77 U/L (45-117); Anion Gap 3 (5-15); BUN 15 mg/dL (7-18); BUN/Creat Ratio 19.2 RATIO (10-20); Calcium,Total 9.1 mg/dL (8.5-10.1); Chloride 106 mmol/L (98-107); Creatinine, Serum 0.78 mg/dL (0.55-1.02); EST Glomerular Filtration Rate 74 mL/min (>60); Est Glom Filt Rate - Afr Amer 89 mL/min (>60); Globulin 3.4 g/dL (2.2-4.2); Glucose 140 mg/dL (74-106); Potassium 4.2 mmol/L (3.5-5.1); Protein, Total 6.6 g/dL (6.4-8.2); Sodium Level 138 mmol/L (136-145); Thyroid Stim Hormone (TSH) 2.06 uIU/mL (0.358-3.74)
[2024-05-06 11:59] LABS: Vitamin B1, Thiamine 131.1 nmol/L (66.5-200.0)
== END | disposition home or self-care (01) ==
PROVIDERS: PCP Nurse Practitioner Primary Care; Referring Provider Psychiatry & Neurology Neurology; Visit Provider Psychiatry & Neurology Neurology
DX: G62.9 Polyneuropathy, unspecified (principal); F03.90 Unspecified dementia, unspecified severity, without behavioral disturbance, psychotic disturbance, mood disturbance, and anxiety
CPT/HCPCS: 36415; 80053; 82607; 82746; 84425; 84443; 85027